=== PATIENT | male | born 1945 | race Caucasian/White ===

== ENCOUNTER 2017-04-26 10:22 | Emergency (ER) | payer MEDICARE, MEDICAID ==
[2017-04-26] MEDS ORDERED: methylPREDNISolone Sodium Succinate 125 MG/2 ML SDV IVPUSH ONE (11:23)
[2017-04-26] MEDS ORDERED: Albuterol/Ipratropium 3.0-0.5 MG/3 ML Neb Soln NEB ONE (11:23)
--- NOTE | 2017-04-26 11:27 | EDM.PDOC ---
ED HPI GENERAL MEDICAL PROBLEM - General Chief Complaint: Respiratory Problem Stated Complaint: from clinic Time Seen by Provider: 04/26/17 11:17 Source of Information: Reports: Patient, Family, Old Records, RN Notes Reviewed History Limitations: Reports: No Limitations - History of Present Illness INITIAL COMMENTS - FREE TEXT/NARRATIVE: 71-year-old gentleman presents emergency department today for further evaluation , he was sent over from the infusion center he is currently undergoing chemotherapy for lung cancer with metastases, he has a known history of COPD does admit to being more short of breath this morning than he usually is I did receive a neb treatment in the clinic help some. Recently had a dental infection was treated with antibiotics and steroids however the wheezing has continued. He's also noticed he's more hypoxic hanging around the 90s usually is around 94 for his baseline limits to creatinine creatinine currently. I did discuss his care with his cancer provider she is concerned about a pulmonary embolism because of his risk - Related Data Allergies Allergy/AdvReac Type Severity Reaction Status Date / Time barium sulfate Allergy Intermediate Hives Verified 04/26/17 10:57 ibuprofen Allergy Other Verified 04/26/17 10:57 Home Meds: Home Meds Albuterol Sulfate 3 ml INH Q4HR 04/26/17 [History] Albuterol Sulfate [Proair Hfa] 2 puff INH DAILY 04/26/17 [History] Furosemide [Lasix] 20 mg PO DAILY 04/26/17 [History] Levothyroxine Sodium [Synthroid] 125 mcg PO DAILY 04/26/17 [History] Past Medical History HEENT History: Reports: Hard of Hearing, Impaired Vision, Other (See Below) Other HEENT History: dentures Respiratory History: Reports: COPD Endocrine/Metabolic History: Reports: Hypothyroidism Oncologic (Cancer) History: Reports: Brain, Liver, Lung, Lymphoma Dermatologic History: Reports: Other (See Below) Other Dermatologic History: rash - Past Surgical History HEENT Surgical History: Reports: Tonsillectomy Respiratory Surgical History: Reports: Lung Biopsies Male Surgical History: Reports: Vasectomy Social & Family History - Tobacco Use Smoking Status *Q: Former Smoker Years of Tobacco use: 60 Used Tobacco, but Quit: Yes Month Tobacco Last Used: 60 - Caffeine Use Caffeine Use: Reports: Coffee, Soda - Recreational Drug Use Recreational Drug Use: Yes Recreational Drug Type: Reports: Marijuana/Hashish Recreational Drug Use Frequency: Monthly ED ROS GENERAL - Review of Systems Review Of Systems: See Below Constitutional: Reports: No Symptoms HEENT: Reports: No Symptoms Respiratory: Reports: Shortness of Breath, Wheezing, Cough. Denies: Sputum Cardiovascular: Reports: No Symptoms GI/Abdominal: Reports: No Symptoms : Reports: No Symptoms Musculoskeletal: Reports: No Symptoms Skin: Reports: No Symptoms Neurological: Reports: No Symptoms ED EXAM, GENERAL - Physical Exam Exam: See Below Exam Limited By: No Limitations General Appearance: Alert, WD/WN, No Apparent Distress Head: Atraumatic, Normocephalic Neck: Normal Inspection, Supple, Non-Tender, Full Range of Motion Respiratory/Chest: No Respiratory Distress, Rhonchi, Wheezing, Prolonged Expiration. No: Accessory Muscle Use, Retractions Cardiovascular: Regular Rate, Rhythm, No Murmur Extremities: Other (+2 pitting edema bilaterally) Course - Vital Signs Last Recorded V/S: Last Vital Signs Temp 97.2 F 04/26/17 10:56 Pulse 110 H 04/26/17 10:56 Resp 18 04/26/17 10:56 BP 122/80 04/26/17 10:56 Pulse Ox 90 L 04/26/17 10:56 - Orders/Labs/Meds Orders: Active Orders 24 hr Category Date Time Status Peripheral IV Care [RC] . DIRECTED Care 04/26/17 11:23 Active RT Aerosol Therapy [RC] ASDIRECTED Care 04/26/17 11:23 Active PRO B-TYPE NATRIUR PEPT,BNPPRO [CHEM] Urgent Lab 04/26/17 11:47 Ordered Iopamidol [Isovue-370 (76%)] Med 04/26/17 11:30 Active 100 ml IV . DIRECTED Sodium Chloride 0.9% [Normal Saline] 1,000 ml Med 04/26/17 11:30 Active IV ASDIRECTED Sodium Chloride 0.9% [Normal Saline] 100 ml Med 04/26/17 11:30 Active IV ASDIRECTED Sodium Chloride 0.9% [Saline Flush] Med 04/26/17 11:23 Active 10 ml FLUSH ASDIRECTED PRN Peripheral IV Insertion Adult [OM.PC] Urgent Oth 04/26/17 11:23 Ordered Medication Orders Sodium Chloride (Normal Saline) 1,000 mls @ 500 mls/hr IV ASDIRECTED JOE Last Admin: 04/26/17 11:35 Dose: 500 mls/hr Sodium Chloride (Normal Saline) 100 mls @ 4 mls/sec IV ASDIRECTED JOE Last Admin: 04/26/17 11:45 Dose: 4 mls/sec Iopamidol (Isovue-370 (76%)) 100 ml IV . DIRECTED JOE Last Admin: 04/26/17 11:44 Dose: 100 ml Sodium Chloride (Saline Flush) 10 ml FLUSH ASDIRECTED PRN PRN Reason: Keep Vein Open Last Admin: 04/26/17 11:44 Dose: 10 ml Admin: 04/26/17 11:34 Dose: 10 ml Meds: Medications Generic Name Dose Route Start Last Admin Trade Name Freq PRN Reason Stop Dose Admin Sodium Chloride 1,000 mls @ 500 mls/hr 04/26/17 11:30 04/26/17 11:35 Normal Saline IV 500 mls/hr ASDIRECTED JOE Administration Sodium Chloride 100 mls @ 4 mls/sec 04/26/17 11:30 04/26/17 11:45 Normal Saline IV 4 mls/sec ASDIRECTED JOE Administration Iopamidol 100 ml 04/26/17 11:30 04/26/17 11:44 Isovue-370 (76%) IV 100 ml . DIRECTED JOE Administration Sodium Chloride 10 ml 04/26/17 11:23 04/26/17 11:44 Saline Flush FLUSH 10 ml ASDIRECTED PRN Administration Keep Vein Open Discontinued Medications Generic Name Dose Route Start Last Admin Trade Name Freq PRN Reason Stop Dose Admin Albuterol/Ipratropium 3 ml 04/26/17 11:23 04/26/17 11:34 Duoneb 3.0-0.5 Mg/3 Ml NEB 04/26/17 11:24 3 ml ONETIME ONE Administration Methylprednisolone Sodium Succinate 125 mg 04/26/17 11:23 04/26/17 11:34 Solu-Medrol IVPUSH 04/26/17 11:24 125 mg ONETIME ONE Administration Departure - Departure Time of Disposition: 12:15 Disposition: Home, Self-Care 01 Condition: Poor Clinical Impression: Acute bronchitis with COPD - Discharge Information Referrals: Gregory Ta PA [Primary Care Provider] - Forms: ED Department Discharge Additional Instructions: Take full course of antibiotics, use the Lasix, water pill for the next 3 days then return to her normal dose, take 7 day course of prednisone starting tomorrow, follow-up with your primary care in 5-7 days for reevaluation - My Orders Last 24 Hours: My Active Orders 04/26/17 11:23 Peripheral IV Care [RC] . DIRECTED RT Aerosol Therapy [RC] ASDIRECTED Sodium Chloride 0.9% [Saline Flush] 10 ml FLUSH ASDIRECTED PRN Peripheral IV Insertion Adult [OM.PC] Urgent 04/26/17 11:30 Iopamidol [Isovue-370 (76%)] 100 ml IV . DIRECTED Sodium Chloride 0.9% [Normal Saline] 1,000 ml IV ASDIRECTED Sodium Chloride 0.9% [Normal Saline] 100 ml IV ASDIRECTED 04/26/17 11:47 PRO B-TYPE NATRIUR PEPT,BNPPRO [CHEM] Urgent - Assessment/Plan Last 24 Hours: My Active Orders 04/26/17 11:23 Peripheral IV Care [RC] . DIRECTED RT Aerosol Therapy [RC] ASDIRECTED Sodium Chloride 0.9% [Saline Flush] 10 ml FLUSH ASDIRECTED PRN Peripheral IV Insertion Adult [OM.PC] Urgent 04/26/17 11:30 Iopamidol [Isovue-370 (76%)] 100 ml IV . DIRECTED Sodium Chloride 0.9% [Normal Saline] 1,000 ml IV ASDIRECTED Sodium Chloride 0.9% [Normal Saline] 100 ml IV ASDIRECTED 04/26/17 11:47 PRO B-TYPE NATRIUR PEPT,BNPPRO [CHEM] Urgent Plan: Assessment Acuity = acute Site and laterality = acute bronchitis complicated patient with known history of chronic obstructive pulmonary disease and lung cancer with metastases Etiology = unclear etiology Manifestations = wheezing, dyspnea Location of injury = Home Lab values = CT scan of the chest angiogram reveals no pulmonary embolism however thickened bronchioles consistent with the otitis type picture metastases of the liver appears stable, BNP was pending Plan I did review CT scan results with him, plan is to do doxycycline 100 mg by mouth twice a day 7 days, he received 125 mg Solu-Medrol here will continue prednisone 40 mg once day for 7 days, he currently is on 20 mg of Lasix which was recently increased to 40 by his primary care provider increase that to 40 mg by mouth twice a day for the next 3 days have him follow-up with his primary care in 5-7 days for evaluation This note was dictated using [email or web address] voice recognition software please call with any questions on syntax or veena.
[2017-04-26] MEDS ORDERED: Iopamidol 755 Mg/ML 100 ML Bottle IV SCH (11:30)
[2017-04-26] MEDS ORDERED: Sodium Chloride 0.9% 1,000 ML IV SCH (11:30)
[2017-04-26] MEDS ORDERED: Sodium Chloride 0.9% 100 ML IV SCH (11:30)
[2017-04-26] MEDS: Sodium Chloride 0.9% 10 ML Syringe FLUSH PRN ×2 (11:34→11:44)
--- NOTE | 2017-04-26 12:09 | CT ---
Ang Chest HISTORY: sob, lung CA TECHNIQUE: Spiral enhanced pulmonary CT angiography of the chest was obtained along with coronal and 3-D sagittal reconstructions. COMPARISON: CT chest, 03/24/2017, 01/19/2017 FINDINGS: There is good enhancement of the pulmonary arteries bilaterally. I see no abnormal intraluminal filli ng defect, vascular cutoff, or nonenhancement. No pulmonary embolism is identified. Thoracic aorta is normal in caliber. I see no evidence for thoracic aortic aneurysm or dissection. Heart size is withi n normal limits. There is increased mild peribronchial thickening right hilar region extending into the right lower lo be. Narrowing of the central right middle and lower lobe bronchi is seen. These changes were not pres ent on the prior study could be inflammatory. A couple of borderline prominent right hilar lymph node s are stable. Slight soft tissue prominence right superior hilar region is stable. Again seen are bullous changes about the right hilum. No focal pulmonary parenchymal infiltrate or co nsolidation is seen. I see no pleural fluid. Upper abdominal structures are stable. There are multipl e areas of low attenuation in the liver similar to prior exam. The largest lesion is again noted in t he posterior right lobe of the liver. Posterior costophrenic angles are not included on this exam. Di ffuse degenerative and hypertrophic changes are again noted along the thoracic spine. I see no lytic or blastic bony lesion. IMPRESSION: 1. Negative for pulmonary embolism. No evidence for aortic aneurysm or dissection. 2. Mild soft tissue fullness right superior hilar region is stable. 3. There appear to be new mild peribronchial inflammatory changes right middle and lower lobes. Recom mend clinical correlation. 4. Probable metastatic disease to the liver is redemonstrated. Total DLP 418 mGycm Report was called to Officer in the Emergency Department at 1200 hours.
[2017-04-26 12:28] VITALS: BP 122/80
== END 2017-04-26 12:28 | disposition home or self-care (01) ==
LOC: JP.ED 10:22
DX: J20.9 Acute bronchitis, unspecified (principal); J44.0 Chronic obstructive pulmonary disease with (acute) lower respiratory infection; E03.9 Hypothyroidism, unspecified; C34.90 Malignant neoplasm of unspecified part of unspecified bronchus or lung; C78.7 Secondary malignant neoplasm of liver and intrahepatic bile duct; C79.31 Secondary malignant neoplasm of brain; Z88.8 Allergy status to other drugs, medicaments and biological substances; Z79.899 Other long term (current) drug therapy; Z87.891 Personal history of nicotine dependence
CPT/HCPCS: 36415; 71275; 83880; 94640; 96361; 96374; 99284; J2930; J7030; J7040; J7050; J7620; Q9967

== ENCOUNTER 2017-06-03 21:38 | Emergency (ER) | payer MEDICARE, MEDICAID ==
[2017-06-03] MEDS ORDERED: Sodium Chloride 0.9% 10 ML Syringe FLUSH PRN (22:08)
[2017-06-03] MEDS ORDERED: Albuterol/Ipratropium 3.0-0.5 MG/3 ML Neb Soln NEB ONE ×2 (22:08→23:02)
[2017-06-03] MEDS ORDERED: methylPREDNISolone Sodium Succinate 40 MG/1 ML SDV IVPUSH ONE (22:09)
--- NOTE | 2017-06-03 22:16 | EDM.PDOC ---
ED HPI GENERAL MEDICAL PROBLEM - General Chief Complaint: Respiratory Problem Stated Complaint: SHORTNESS OF BREATH Time Seen by Provider: 06/03/17 22:00 Source of Information: Reports: Patient, Family, Old Records History Limitations: Reports: No Limitations - History of Present Illness INITIAL COMMENTS - FREE TEXT/NARRATIVE: 72 yo male presents with SOB and wheezing that started about a week ago, but which is much worse today. No fever. Had an albuterol neb about an hour ago. Was recently on steroids, but is not currently. Has known COPD as well as lung involvement with cancer. Onset: Gradual Onset Date: 05/28/17 Duration: Day(s):, Getting Worse Location: Reports: Chest Quality: Reports: Other (no pain) Severity: Moderate Improves with: Reports: Rest Worsens with: Reports: Movement (exertion) Context: Reports: Other (Hx of COPD) Associated Symptoms: Reports: Cough, Shortness of Breath. 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: Reports: Breathing Treatments, Other (see below) (Albuterol neb) denies pain Pain Score (Numeric/FACES): 0 - Related Data Allergies Allergy/AdvReac Type Severity Reaction Status Date / Time barium sulfate Allergy Intermediate Hives Verified 04/26/17 10:57 ibuprofen Allergy Itching Verified 06/03/17 21:46 Home Meds: Home Meds Albuterol Sulfate 3 ml INH Q4HR 04/26/17 [History] Albuterol Sulfate [Proair Hfa] 2 puff INH DAILY 04/26/17 [History] Furosemide [Lasix] 20 mg PO DAILY 04/26/17 [History] Levothyroxine Sodium [Synthroid] 137 mcg PO DAILY 04/26/17 [History] Acetaminophen [Tylenol] 650 mg PO ASDIRECTED PRN 06/03/17 [History] Furosemide [Lasix] 40 mg PO BID PRN 06/03/17 [History] Ipratropium [Atrovent] 0.5 mg INH Q6H PRN #30 neb 06/03/17 [Rx] predniSONE [Prednisone] 20 mg PO BID #10 tablet 06/03/17 [Rx] Past Medical History HEENT History: Reports: Hard of Hearing, Impaired Vision, Other (See Below) Other HEENT History: dentures. bilateral hearing aids Respiratory History: Reports: COPD Gastrointestinal History: Reports: Hemorrhoids Endocrine/Metabolic History: Reports: Hypothyroidism Oncologic (Cancer) History: Reports: Brain, Liver, Lung, Lymphoma Dermatologic History: Reports: Other (See Below) Other Dermatologic History: rash - Infectious Disease History Infectious Disease History: Reports: Chicken Pox, Measles, Mumps, Shingles - Past Surgical History HEENT Surgical History: Reports: Tonsillectomy Respiratory Surgical History: Reports: Lung Biopsies GI Surgical History: Reports: Other (See Below) Other GI Surgeries/Procedures: hemorrhoidectomy Male Surgical History: Reports: Vasectomy Social & Family History - Tobacco Use Smoking Status *Q: Current Every Day Smoker Years of Tobacco use: 50 Packs/Tins Daily: 0.2 Used Tobacco, but Quit: Yes Month/Year Tobacco Last Used: 60 - Caffeine Use Caffeine Use: Reports: Coffee, Soda - Recreational Drug Use Recreational Drug Use: No Recreational Drug Type: Reports: Marijuana/Hashish Recreational Drug Use Frequency: Monthly ED ROS GENERAL - Review of Systems Review Of Systems: See Below Constitutional: Reports: No Symptoms HEENT: Reports: No Symptoms Respiratory: Reports: Shortness of Breath, Wheezing, Cough. Denies: Pleuritic Chest Pain, Sputum, Hemoptysis Cardiovascular: Reports: No Symptoms Endocrine: Reports: No Symptoms GI/Abdominal: Reports: No Symptoms : Reports: No Symptoms Musculoskeletal: Reports: No Symptoms Skin: Reports: No Symptoms Neurological: Reports: No Symptoms Psychiatric: Reports: No Symptoms ED EXAM, GENERAL - Physical Exam Exam: See Below Exam Limited By: No Limitations General Appearance: Alert, WD/WN, Mild Distress Eye Exam: Bilateral Eye: Normal Inspection Ears: Normal External Exam, Normal Canal, Hearing Grossly Normal, Other ( Bilateral hearing aids) Ear Exam: Bilateral Ear: Auricle Normal, Canal Normal Nose: Normal Inspection, Normal Mucosa, No Blood Throat/Mouth: Normal Inspection, Normal Lips, Normal Oropharynx, Normal Voice, No Airway Compromise Head: Atraumatic, Normocephalic Neck: Normal Inspection, Supple, Non-Tender Respiratory/Chest: Decreased Breath Sounds, Wheezing, Prolonged Expiration Cardiovascular: Regular Rate, Rhythm GI/Abdominal: Normal Bowel Sounds, Soft, Non-Tender Back Exam: Normal Inspection. No: CVA Tenderness (R), CVA Tenderness (L) Extremities: Normal Inspection, Normal Range of Motion, Non-Tender Neurological: Alert, Oriented, CN II-XII Intact, Normal Cognition, No Motor/ Sensory Deficits Psychiatric: Normal Affect, Normal Mood Skin Exam: Warm, Dry, Intact, Normal Color, No Rash Lymphatic: No Adenopathy Course - Vital Signs Text/Narrative:: Moderate improvement in the ER with IV steroids and Duoneb, does not want to stay in the hospital. Last Recorded V/S: Last Vital Signs Temp 37.0 C 06/03/17 22:06 Pulse 102 H 06/03/17 22:54 Resp 20 06/03/17 22:35 BP 102/64 06/03/17 22:54 Pulse Ox 95 06/03/17 22:54 - Orders/Labs/Meds Orders: Active Orders 24 hr Category Date Time Status Cardiac Monitoring [RC] .As Directed Care 06/03/17 22:10 Active Oxygen Therapy Adult [Oxygen Therapy, ED] [RC] Care 06/03/17 22:08 Active ASDIRECTED RT Aerosol Therapy [RC] ASDIRECTED Care 06/03/17 22:08 Active Chest 2V [CR] Stat Exams 06/03/17 22:10 Taken Sodium Chloride 0.9% [Saline Flush] Med 06/03/17 22:08 Active 10 ml FLUSH ASDIRECTED PRN Saline Lock Insert [OM.PC] Routine Oth 06/03/17 22:08 Ordered Medication Orders Sodium Chloride (Saline Flush) 10 ml FLUSH ASDIRECTED PRN PRN Reason: Keep Vein Open Last Admin: 06/03/17 22:45 Dose: 10 ml Labs: Laboratory Tests 06/03/17 06/03/17 Range/Units 22:20 22:20 WBC 10.3 (4.5-11.0) K/uL RBC 5.96 H (4.30-5.90) M/uL Hgb 16.5 H (12.0-15.0) g/dL Hct 49.8 (40.0-54.0) % MCV 84 (80-98) fL MCH 28 (27-31) pg MCHC 33 (32-36) % Plt Count 232 (150-400) K/uL Sodium 143 (140-148) mmol/L Potassium 4.9 (3.6-5.2) mmol/L Chloride 107 (100-108) mmol/L Carbon Dioxide 31 (21-32) mmol/L Anion Gap 5.4 (5.0-14.0) mmol/L BUN 12 (7-18) mg/dL Creatinine 1.1 (0.8-1.3) mg/dL Est Cr Clr Drug Dosing 53.17 mL/min Estimated GFR (MDRD) > 60 (>60) Glucose 125 H (74-106) mg/dL Calcium 8.8 (8.5-10.1) mg/dL Meds: Medications Generic Name Dose Route Start Last Admin Trade Name Freq PRN Reason Stop Dose Admin Sodium Chloride 10 ml 06/03/17 22:08 06/03/17 22:45 Saline Flush FLUSH 10 ml ASDIRECTED PRN Administration Keep Vein Open Discontinued Medications Generic Name Dose Route Start Last Admin Trade Name Freq PRN Reason Stop Dose Admin Albuterol/Ipratropium 3 ml 06/03/17 22:08 06/03/17 22:44 Duoneb 3.0-0.5 Mg/3 Ml NEB 06/03/17 22:09 3 ml ONETIME ONE Administration Methylprednisolone Sodium Succinate 40 mg 06/03/17 22:09 06/03/17 22:44 Solu-Medrol IVPUSH 06/03/17 22:10 40 mg ONETIME ONE Administration - Radiology Interpretation Free Text/Narrative:: CXR-emphysema, no acute changes. Departure - Departure Time of Disposition: 23:01 Disposition: Home, Self-Care 01 Condition: Fair Clinical Impression: COPD with exacerbation - Discharge Information Prescriptions: Ipratropium [Atrovent] 0.5 mg INH Q6H PRN #30 neb PRN Reason: Wheezing predniSONE [Prednisone] 20 mg PO BID #10 tablet Referrals: Gregory Ta PA [Primary Care Provider] - Forms: ED Department Discharge Additional Instructions: Add prednisone every 12 hrs with food to your current meds. Use ipratroprium nebs every 6 hrs for wheezing not controlled by albuterol alone. Return as needed. See your doctor next week for recheck. Use oxygen as needed at home. - My Orders Last 24 Hours: My Active Orders 06/03/17 22:08 Oxygen Therapy Adult [Oxygen Therapy, ED] [RC] ASDIRECTED RT Aerosol Therapy [RC] ASDIRECTED Sodium Chloride 0.9% [Saline Flush] 10 ml FLUSH ASDIRECTED PRN Saline Lock Insert [OM.PC] Routine 06/03/17 22:10 Cardiac Monitoring [RC] .As Directed Chest 2V [CR] Stat - Assessment/Plan Last 24 Hours: My Active Orders 06/03/17 22:08 Oxygen Therapy Adult [Oxygen Therapy, ED] [RC] ASDIRECTED RT Aerosol Therapy [RC] ASDIRECTED Sodium Chloride 0.9% [Saline Flush] 10 ml FLUSH ASDIRECTED PRN Saline Lock Insert [OM.PC] Routine 06/03/17 22:10 Cardiac Monitoring [RC] .As Directed Chest 2V [CR] Stat
[2017-06-03 22:55] VITALS: BP 102/64
--- NOTE | 2017-06-05 09:32 | CR ---
Heart size within normal limits. Emphysematous change. No focal consolidation. 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
== END 2017-06-03 23:21 | disposition home or self-care (01) ==
LOC: JP.ED 21:38
DX: J44.1 Chronic obstructive pulmonary disease with (acute) exacerbation (principal); E03.9 Hypothyroidism, unspecified; F17.210 Nicotine dependence, cigarettes, uncomplicated; Z88.6 Allergy status to analgesic agent; Z79.899 Other long term (current) drug therapy; Z88.8 Allergy status to other drugs, medicaments and biological substances
CPT/HCPCS: 36415; 71046; 80048; 85027; 94640; 96374; 99284; 99285; J2920; J7050; J7620

== ENCOUNTER 2018-06-21 08:15 | Day surgery (SDC) | payer MEDICARE, MEDICAID ==
[2018-06-21] MEDS ORDERED: Sodium Chloride 0.9% 10 ML Syringe FLUSH PRN (09:00)
[2018-06-21 10:27] VITALS: BP 108/77
--- NOTE | 2018-06-21 13:19 | OR ---
DATE OF PROCEDURE: 06/21/2018 POSTOPERATIVE CARE: Postoperative care will be provided mainly at the [address] [place] [address] [facility] in conjunction with [facility]. PREOPERATIVE DIAGNOSIS: Cataract, left eye. POSTOPERATIVE DIAGNOSIS: Cataract, left eye. PROCEDURE: Phacoemulsification with intraocular lens placement, left eye. ANESTHESIA: Topical and intracameral. ESTIMATED BLOOD LOSS: Minimal. COMPLICATIONS: None. PATHOLOGY SPECIMENS: None. SURGICAL FINDINGS: None. INDICATION FOR PROCEDURE: The patient is a 73-year-old male with history of a visually significant cataract in the left eye, which interfered with activities of daily living. This consisted of a nuclear sclerosis cataract. Following careful discussion of the risks, benefits and alternatives to cataract extraction with intraocular lens placement including blindness and , the patient elected to proceed, and informed, written consent was obtained prior to the procedure. DESCRIPTION OF THE PROCEDURE: The patient was previously identified, and a imtiaz placed above the left eye. All sources, including the patient, indicated that the left eye was the correct eye. The patient was subsequently taken to the operating room where standard monitors were applied. The patient was then prepped and draped in the usual sterile fashion for ophthalmic surgery. Attention was first directed at the 12 o'clock position where a paracentesis port was fashioned. Shugar solution followed by Viscoat was instilled into the eye. Attention was then directed to the 8:30 position where a triplanar incision was made in a near-clear manner using a keratome. A continuous capsulorrhexis was then made using a combination of the cystotome and Utrata forceps. Hydrodissection was achieved using a balanced salt solution, and the lens rotated nicely. Phacoemulsification was then done using a modified [id number] technique without complication. Phaco time was 5.49 CDE. The remaining cortex was removed using the irrigation/aspiration handpiece. Provisc was then instilled into the eye. A Technis lens, model [id number], at 21.0 Diopters was then placed in the capsular bag using an [place] injector. The remaining viscoelastic was removed using the irrigation/aspiration forceps. All wounds were then checked and found to be watertight. The lid speculum and drapes were removed. Maxitrol ointment was placed in the patient's left eye, and the eye was shielded. The patient tolerated the procedure well. The patient was instructed to follow up tomorrow. All needle and sponge counts were correct at the end of the procedure. There were no surgical findings. Mariel Lo MD /[id number]
== END 2018-06-21 10:10 | disposition home or self-care (01) ==
LOC: JP.SDS 08:15
PROVIDERS: ATTEND Ophthalmology
DX: H26.9 Unspecified cataract (principal)
CPT/HCPCS: 66984; V2632

== ENCOUNTER 2018-07-05 06:52 | Day surgery (SDC) | payer MEDICARE, MEDICAID ==
[2018-07-05] MEDS ORDERED: Sodium Chloride 0.9% 10 ML Syringe FLUSH PRN (07:30)
[2018-07-05 08:33] VITALS: BP 114/56
--- NOTE | 2018-07-05 14:40 | OR ---
DATE OF PROCEDURE: 07/05/2018 POSTOPERATIVE CARE: Postoperative care will be provided mainly at the [address] [place] [address] [facility] in conjunction with [facility]. PREOPERATIVE DIAGNOSIS: Cataract, right eye. POSTOPERATIVE DIAGNOSIS: Cataract, right eye. PROCEDURE: Phacoemulsification with intraocular lens placement, right eye. ANESTHESIA: Topical and intracameral. ESTIMATED BLOOD LOSS: Minimal. COMPLICATIONS: None. PATHOLOGY SPECIMENS: None. SURGICAL FINDINGS: None. INDICATION FOR PROCEDURE: The patient is a 73-year-old male with history of a visually significant cataract in the right eye, which interfered with activities of daily living. This consisted of a nuclear sclerosis cataract. Following careful discussion of the risks, benefits and alternatives to cataract extraction with intraocular lens placement including blindness and , the patient elected to proceed, and informed, written consent was obtained prior to the procedure. DESCRIPTION OF THE PROCEDURE: The patient was previously identified, and a imtiaz placed above the right eye. All sources, including the patient, indicated that the right eye was the correct eye. The patient was subsequently taken to the operating room where standard monitors were applied. The patient was then prepped and draped in the usual sterile fashion for ophthalmic surgery. Attention was first directed at the 12 o'clock position where a paracentesis port was fashioned. Shugar solution followed by Viscoat was instilled into the eye. Attention was then directed to the 8:30 position where a triplanar incision was made in a near-clear manner using a keratome. A continuous capsulorrhexis was then made using a combination of the cystotome and Utrata forceps. Hydrodissection was achieved using a balanced salt solution, and the lens rotated nicely. Phacoemulsification was then done using a modified [id number] technique without complication. Phaco time was 6.25 CDE. The remaining cortex was removed using the irrigation/aspiration handpiece. Provisc was then instilled into the eye. A Technis lens, model [id number], at 21.5 diopters was then placed in the capsular bag using an Hoople injector. The remaining viscoelastic was removed using the irrigation/aspiration forceps. All wounds were then checked and found to be watertight. The lid speculum and drapes were removed. Maxitrol ointment was placed in the patient's right eye, and the eye was shielded. The patient tolerated the procedure well. The patient was instructed to follow up tomorrow. All needle and sponge counts were correct at the end of the procedure. There were no surgical findings. Mariel Lo MD /[id number]
== END 2018-07-05 08:44 | disposition home or self-care (01) ==
LOC: JP.SDS 06:52
PROVIDERS: ATTEND Ophthalmology
DX: H25.11 Age-related nuclear cataract, right eye (principal); J44.9 Chronic obstructive pulmonary disease, unspecified; C34.90 Malignant neoplasm of unspecified part of unspecified bronchus or lung; F17.200 Nicotine dependence, unspecified, uncomplicated
CPT/HCPCS: 66984; V2632

== ENCOUNTER 2019-03-08 06:40 | Emergency (ER) | payer MEDICARE, MEDICAID ==
[2019-03-08] MEDS ORDERED: Nitroglycerin 0.4 MG Tab.SL ONE (06:47)
[2019-03-08] MEDS ORDERED: Nitroglycerin 0.4 MG Tab.SL SL ONE (06:48)
--- NOTE | 2019-03-08 07:48 | CRLCR ---
INDICATION: Chest pain TECHNIQUE: Chest 1 views COMPARISON: CT chest February 05, 2019 FINDINGS: Cardiovascular and mediastinum: Heart size and vasculature are normal in caliber and appearance. Lungs and pleural spaces: Ill-defined 2.8 cm mass lesion is in the lateral left mid lung. The remainder of the lungs and pleural spaces are clear. No pneumothorax. No other finding to explain chest pain. Bones and soft tissues: No significant findings. Dictated by Oj Real MD @ 03/08/2019 7:47:05 AM Dictated by: Oj Real MD @ 03/08/2019 07:47:10 (Electronically Signed)
[2019-03-08] MEDS ORDERED: Sodium Chloride 0.9% 10 ML Syringe FLUSH PRN (07:50)
[2019-03-08] MEDS ORDERED: Sodium Chloride 0.9% 80 ML IV ONE (07:50)
--- NOTE | 2019-03-08 07:52 | EDM.PDOC ---
ED HPI GENERAL MEDICAL PROBLEM - General Chief Complaint: Chest Pain Stated Complaint: CHEST PAINS Time Seen by Provider: 03/08/19 07:15 Source of Information: Reports: Patient History Limitations: Reports: No Limitations - History of Present Illness INITIAL COMMENTS - FREE TEXT/NARRATIVE: 73 -year-old with history of metastatic lung cancer presents to concerns of chest pain. The pain is primarily in the left side of his chest. It started suddenly at 3 AM. It is strongly pleuritic in nature. He has no associated dyspnea. It is nonexertional. No new cough. No hemoptysis. No fevers or chills. No history of similar pain in the past. No history of heart disease. Denies any bloody stools or melena. He is currently undergoing chemotherapy for his lung cancer, with plans to start radiation therapy in [place] next week for new lung lesions. He has no lower extremity swelling or pain. No history of DVT. No recent surgeries or immobilizations. Chest Pain Score (Numeric/FACES): 1 - Related Data Allergies Allergy/AdvReac Type Severity Reaction Status Date / Time barium sulfate Allergy Intermediate Hives Verified 03/08/19 06:52 aspirin Allergy Other Verified 03/08/19 06:52 [From Excedrin Extra Strength] caffeine Allergy Other Verified 03/08/19 06:52 [From Excedrin Extra Strength] ibuprofen Allergy Itching Verified 03/08/19 06:52 Home Meds: Home Meds Furosemide [Lasix] 20 mg PO ASDIRECTED 04/26/17 [History] Levothyroxine Sodium [Synthroid] 175 mcg PO DAILY 04/26/17 [History] Ipratropium [Atrovent] 0.5 mg INH Q6H PRN #30 neb 06/03/17 [Rx] Albuterol Sulfate [Proair Hfa] 2 puff INH QID PRN 06/19/18 [History] Dexamethasone Sodium Phosphate [Dexonto] 1 drop EYELF QID 06/19/18 [History] Fluticasone/Salmeterol [Advair 250-50 Diskus] 1 puff INH BID 06/19/18 [History] Moxifloxacin HCl [Moxifloxacin] 1 drop EYELF QID 06/19/18 [History] Triamcinolone Acetonide [Triamcinolone Acetonide 0.1% Oint] 1 applic TOP DAILY 06/19/18 [History] guaiFENesin [Guaifenesin ER] 1,200 mg PO BID 06/19/18 [History] Albuterol/Ipratropium [DuoNeb 3.0-0.5 MG/3 ML] 1 inh INH Q4H PRN 07/03/18 [ History] Clobetasol [Clobetasol Propionate 0.05%] 15 gm TOP BID 07/03/18 [History] Amoxicillin/Clavulanate K [Augmentin 875-125 MG] 1 tab PO BID 7 Days #14 tablet 03/08/19 [Rx] Azithromycin [Zithromax] 250 mg PO DAILY #6 tab 03/08/19 [Rx] Past Medical History HEENT History: Reports: Cataract, Hard of Hearing, Impaired Vision, Other (See Below) Other HEENT History: dentures. bilateral hearing aids Respiratory History: Reports: COPD Gastrointestinal History: Reports: Hemorrhoids Musculoskeletal History: Reports: Back Pain, Chronic Endocrine/Metabolic History: Reports: Hypothyroidism Oncologic (Cancer) History: Reports: Brain, Liver, Lung, Lymphoma Dermatologic History: Reports: Other (See Below) Other Dermatologic History: rash - Infectious Disease History Infectious Disease History: Reports: Chicken Pox, Measles, Mumps - Past Surgical History HEENT Surgical History: Reports: Cataract Surgery, Tonsillectomy Respiratory Surgical History: Reports: Lung Biopsies GI Surgical History: Reports: Other (See Below) Other GI Surgeries/Procedures: hemorrhoidectomy Male Surgical History: Reports: Vasectomy Musculoskeletal Surgical History: Reports: None Social & Family History - Family History Family Medical History: Noncontributory - Tobacco Use Years of Tobacco use: 60 Packs/Tins Daily: 1 - Caffeine Use Caffeine Use: Reports: Coffee, Soda - Recreational Drug Use Recreational Drug Use: No ED ROS GENERAL - Review of Systems Review Of Systems: See Below Constitutional: Reports: No Symptoms HEENT: Reports: No Symptoms Respiratory: Reports: Pleuritic Chest Pain Cardiovascular: Reports: Chest Pain Endocrine: Reports: No Symptoms GI/Abdominal: Reports: No Symptoms : Reports: No Symptoms Musculoskeletal: Reports: No Symptoms Skin: Reports: No Symptoms Neurological: Reports: No Symptoms Psychiatric: Reports: No Symptoms Hematologic/Lymphatic: Reports: No Symptoms Immunologic: Reports: No Symptoms ED EXAM, GENERAL - Physical Exam Exam: See Below Exam Limited By: No Limitations General Appearance: Alert, No Apparent Distress Ears: Normal External Exam Nose: Normal Inspection Throat/Mouth: Normal Inspection Head: Atraumatic, Normocephalic Respiratory/Chest: No Respiratory Distress, Crackles Cardiovascular: Regular Rate, Rhythm, No Edema GI/Abdominal: Soft, Non-Tender Back Exam: Normal Inspection Extremities: Normal Inspection Neurological: Alert, Oriented Psychiatric: Normal Affect, Normal Mood Skin Exam: Warm, Dry Course - Vital Signs Last Recorded V/S: Last Vital Signs Temp 36.9 C 03/08/19 06:44 Pulse 83 03/08/19 08:49 Resp 25 H 03/08/19 08:49 BP 90/52 L 03/08/19 08:49 Pulse Ox 93 L 03/08/19 08:49 - Orders/Labs/Meds Orders: Active Orders 24 hr Category Date Time Status EKG Documentation Completion [RC] ASDIRECTED Care 03/08/19 07:02 Active Iopamidol [Isovue-370 (76%)] Med 03/08/19 08:00 Active 80 ml IV . DIRECTED Sodium Chloride 0.9% [Saline Flush] Med 03/08/19 07:50 Active 10 ml FLUSH ONETIME PRN EKG 12 Lead [EK] Routine Ther 03/08/19 07:01 Ordered Medication Orders Iopamidol (Isovue-370 (76%)) 80 ml IV . DIRECTED [facility] Last Admin: 03/08/19 08:19 Dose: 80 ml Sodium Chloride (Saline Flush) 10 ml FLUSH ONETIME PRN PRN Reason: PER RADIOLOGY PROTOCOL Last Admin: 03/08/19 08:19 Dose: 10 ml Labs: Laboratory Tests 03/08/19 03/08/19 Range/Units 06:50 06:50 WBC 12.1 H (4.5-11.0) K/uL RBC 5.14 (4.30-5.90) M/uL Hgb 14.1 D (12.0-15.0) g/dL Hct 43.4 (40.0-54.0) % MCV 84 (80-98) fL MCH 27 (27-31) pg MCHC 33 (32-36) % Plt Count 209 (150-400) K/uL Neut % (Auto) 73 H (36-66) % Lymph % (Auto) 9 L (24-44) % [place] % (Auto) 13 H (2-6) % Eos % (Auto) 5 H (2-4) % Baso % (Auto) 0 (0-1) % Sodium 137 L (140-148) mmol/L Potassium 4.7 (3.6-5.2) mmol/L Chloride 104 (100-108) mmol/L Carbon Dioxide 22 (21-32) mmol/L Anion Gap 15.7 H (5.0-14.0) mmol/L BUN 16 (7-18) mg/dL Creatinine 1.2 (0.8-1.3) mg/dL Est Cr Clr Drug Dosing 49.73 mL/min Estimated GFR (MDRD) 59 L (>60) Glucose 111 H (74-106) mg/dL Calcium 8.1 L (8.5-10.1) mg/dL Total Bilirubin 0.8 (0.2-1.0) mg/dL AST 28 (15-37) U/L ALT 40 (12-78) U/L Alkaline Phosphatase 136 H (46-116) U/L Troponin I < 0.017 (0.000-0.056) ng/mL Total Protein 7.4 (6.4-8.2) g/dL Albumin 3.3 L (3.4-5.0) g/dL Globulin 4.1 H (2.3-3.5) g/dL Albumin/Globulin Ratio 0.8 L (1.2-2.2) Meds: Medications Generic Name Dose Route Start Last Admin Trade Name Freq PRN Reason Stop Dose Admin Iopamidol 80 ml 03/08/19 08:00 03/08/19 08:19 Isovue-370 (76%) IV 80 ml . DIRECTED JOE Administration Sodium Chloride 10 ml 03/08/19 07:50 03/08/19 08:19 Saline Flush FLUSH 10 ml ONETIME PRN Administration PER RADIOLOGY PROTOCOL Discontinued Medications Generic Name Dose Route Start Last Admin Trade Name Freq PRN Reason Stop Dose Admin Sodium Chloride 80 mls @ 3 mls/sec 03/08/19 07:50 03/08/19 08:20 Normal Saline IV 03/08/19 07:51 3 mls/sec ONETIME ONE Administration Nitroglycerin 0.4 mg 03/08/19 06:48 03/08/19 06:49 Nitrostat SL 03/08/19 06:49 0.4 mg ONETIME ONE Administration Nitroglycerin Confirm 03/08/19 06:47 Nitrostat Administered 03/08/19 06:48 Dose 0.4 mg .ROUTE .STK-MED ONE - Re-Assessments/Exams Free Text/Narrative Re-Assessment/Exam: 73-year-old with history of lung cancer presents with pleuritic left-sided chest pain. On exam he is found to be tachycardic. O2 sats in the low 90s, may just be his baseline. Mildly hypotensive after administration of nitroglycerin upon arrival to ED. No abdominal tenderness and exams otherwise benign. EKG is nonischemic. This does not sound like ACS. initial labs including troponin are remarkable only for mild elevation of his alkaline phosphatase, I suspect this is due to his malignancy as he has no abdominal tenderness. Chest x-ray on my read shows known left lower lobe malignancy, no acute process. Given his tachycardia, strong pleuritic nature of the pain combined with his history of malignancy place him at high pretest probability for PE, therefore will obtain CTA of the chest. 03/08/19 07:49 Free Text/Narrative Re-Assessment/Exam: CT without PE, does shows new VICKY infiltrate suspicious for infection. VICKY nodule has actually decreased in size Will treat for CAP with augmentin + zithromax Has follow-up with oncologist early next week for recheck prior to initiation of radiation therapy. Discussed returning to the ER for worsening. 03/08/19 09:21 Departure - Departure Time of Disposition: 09:23 Disposition: Home, Self-Care 01 Clinical Impression: Pleurisy CAP (community acquired pneumonia) Qualifiers: Laterality: left Lung location: upper lobe of lung Qualified Code(s): J18.9 - Pneumonia, unspecified organism Prescriptions: Amoxicillin/Clavulanate K [Augmentin 875-125 MG] 1 tab PO BID 7 Days #14 tablet Azithromycin [Zithromax] 250 mg PO DAILY #6 tab Instructions: Community-Acquired Pneumonia, Adult, Pleurisy, [id number] Referrals: Darrick Berrios, FIELD CONSULTANT [Primary Care Provider] - Forms: ED Department Discharge Additional Instructions: You are being diagnosed with a pneumonia Please take the prescribed antibiotic Return to the ER for worsening symptoms as discussed Please discuss your visit today with your oncologist when you follow up next week to ensure you can go forward with radiation therapy as planned. Sepsis Event Note - Evaluation Sepsis Screening Result: No Definite Risk - Focused Exam Vital Signs: Vital Signs Temp Pulse Resp BP BP Pulse Ox 03/08/19 08:49 83 25 H 90/52 L 93 L 03/08/19 08:29 83 22 H 93/50 L 93 L 03/08/19 08:19 88 25 H 100/54 L 94 L 03/08/19 07:54 89 16 98/56 L 92 L 03/08/19 07:49 93 20 76/52 L 93 L 03/08/19 07:39 89 96/53 L 03/08/19 07:29 97 18 91/58 L 94 L 03/08/19 07:19 97 20 87/51 L 96 03/08/19 07:09 100 17 89/55 L 92 L 03/08/19 06:59 100 14 80/48 L 92 L 03/08/19 06:49 106 H 13 100/65 97/58 L 93 L 03/08/19 06:44 36.9 C 98 15 100/65 94 L 03/08/19 06:43 36.9 C 98 15 100/65 94 L Date Exam was Performed: 03/08/19 Time Exam was Performed: 09:21 - My Orders Last 24 Hours: My Active Orders 03/08/19 07:50 Sodium Chloride 0.9% [Saline Flush] 10 ml FLUSH ONETIME PRN 03/08/19 08:00 Iopamidol [Isovue-370 (76%)] 80 ml IV . DIRECTED - Assessment/Plan Last 24 Hours: My Active Orders 03/08/19 07:50 Sodium Chloride 0.9% [Saline Flush] 10 ml FLUSH ONETIME PRN 03/08/19 08:00 Iopamidol [Isovue-370 (76%)] 80 ml IV . DIRECTED
[2019-03-08] MEDS ORDERED: Iopamidol 755 Mg/ML 100 ML Bottle IV SCH (08:00)
[2019-03-08 08:34] VITALS: PULSE 83
[2019-03-08 08:58] VITALS: BP 90/52
--- NOTE | 2019-03-08 09:02 | CRLCT ---
INDICATION: Dyspnea. Tachycardia. Lung cancer. TECHNIQUE: CT chest PE was acquired with 80 cc Isovue 370 IV contrast. COMPARISON: February 05, 2019. FINDINGS: Heart and vasculature: Contrast opacification of the pulmonary arterial tree is adequate. No sign of pulmonary embolism. Heart size is normal. Thoracic aorta and pulmonary artery are normal in caliber. Lungs and pleural: A new ill-defined airspace infiltrate in the left upper lobe is visualized on series 5, image 68. Subcentimeter spiculated nodule in the left upper lobe on series 5, image 54 has decreased in size. Previously seen left lower lobe nodule has resolved. However, there are 2 adjacent pleural based nodular infiltrates in the extreme left lung base on series 5, image 129 which have slightly increased. Moderate emphysema. No pleural effusions, pleural thickening, or pneumothorax. Lymph nodes/mediastinum: No mediastinal, hilar, or axillary adenopathy. Chest wall: No masses. Upper abdomen: Ill-defined low-attenuation liver lesions are unchanged. Bones: Unremarkable for age. IMPRESSION: 1. No pulmonary embolism. 2. New left upper lobe airspace infiltrate consistent with pneumonia. 3. Interval resolution of the previously seen left upper lobe nodule. Interval decrease in size of the previously seen left upper lobe spiculated nodule. However, 2 small peripheral nodules in the medial left lung base have increased in size. 4. No other acute findings or changes. Dictated by Oj Real MD @ 03/08/2019 9:00:12 AM Please note that all CT scans at this facility use dose modulation, iterative reconstruction, and/or weight-based dosing when appropriate to reduce radiation dose to as low as reasonably achievable. Dictated by: Oj Real MD @ 03/08/2019 09:00:17 (Electronically Signed)
== END 2019-03-08 09:29 | disposition home or self-care (01) ==
LOC: JP.ED 06:40
DX: R09.1 Pleurisy (principal); J18.9 Pneumonia, unspecified organism; J44.9 Chronic obstructive pulmonary disease, unspecified; E03.9 Hypothyroidism, unspecified; F17.210 Nicotine dependence, cigarettes, uncomplicated; Z88.8 Allergy status to other drugs, medicaments and biological substances; Z79.899 Other long term (current) drug therapy
CPT/HCPCS: 36415; 71045; 71275; 80053; 84484; 85025; 93005; 93010; 99284; 99285; A9270; J7050; Q9967

== ENCOUNTER 2019-08-27 10:30 | Inpatient (IN) | payer MEDICARE, MEDICAID ==
[2019-08-27] MEDS ORDERED: Albuterol/Ipratropium 3.0-0.5 MG/3 ML Neb Soln NEB ONE (10:44)
[2019-08-27] MEDS: Sodium Chloride 0.9% 10 ML Syringe FLUSH PRN ×2 (11:04→11:18)
[2019-08-27] MEDS ORDERED: Albuterol 0.083% 2.5 MG/3 ML Neb Soln NEB ONE (11:11)
[2019-08-27] MEDS ORDERED: methylPREDNISolone Sodium Succinate 125 MG/2 ML SDV IVPUSH ONE (11:11)
[2019-08-27] MEDS ORDERED: Albuterol 0.083% 2.5 MG/3 ML Neb Soln ONE (11:13)
[2019-08-27] MEDS ORDERED: Budesonide 0.5 MG/2 ML Neb Susp ONE (11:22)
[2019-08-27] MEDS ORDERED: Budesonide 0.5 MG/2 ML Neb Susp NEB ONE (11:23)
[2019-08-27] MEDS ORDERED: LORazepam 0.5 MG Tab PO ONE (12:08)
--- NOTE | 2019-08-27 12:09 | EDM.PDOC ---
ED HPI GENERAL MEDICAL PROBLEM - General Chief Complaint: Respiratory Problem Stated Complaint: SOB Time Seen by Provider: 08/27/19 10:35 Source of Information: Reports: Patient, Family, RN, RN Notes Reviewed History Limitations: Reports: No Limitations - History of Present Illness INITIAL COMMENTS - FREE TEXT/NARRATIVE: Cecilio is a 74 yo male that was sent over to ED from the infusion clinic. He was supposed to get chemotherapy there today for lung cancer but due to his respiratory status he was sent to ED. He c/o shortness of breath, increase in sputum production, and occasional chills. He was diagnosed with community acquired pneumonia about 2 weeks ago. He completed a course of doxycycline on 08/07/19 without much improvement. He was also put on oral prednisone at the same time but quit taking that early (per the ) cause he felt it wasn't helping. Cecilio was prescribed levaquin on 08/15/2019 and cefdinir on 08/20/2019 and he had a reaction to one of them (severe vomiting and diarrhea which made him very weak) and he quit taking the other one after 3 days cause he felt it wasn't helping. Cecilio states that the SOB became much worse over the last 2-3 days which was limiting his activity. His states that he has been using his home oxygen pretty much continuously at 3lpm. He has been using OTC Robitussin for the cough at home. Onset: Gradual Duration: Week(s): (2-3 weeks) Location: Reports: Chest - Related Data Allergies Allergy/AdvReac Type Severity Reaction Status Date / Time barium sulfate Allergy Intermediate Hives Verified 03/08/19 06:52 aspirin Allergy Other Verified 03/08/19 06:52 [From Excedrin Extra Strength] caffeine Allergy Other Verified 03/08/19 06:52 [From Excedrin Extra Strength] ibuprofen Allergy Itching Verified 03/08/19 06:52 Home Meds: Home Meds Furosemide [Lasix] 20 mg PO ASDIRECTED 04/26/17 [History] Levothyroxine Sodium [Synthroid] 175 mcg PO DAILY 04/26/17 [History] Ipratropium [Atrovent] 0.5 mg INH Q6H PRN #30 neb 06/03/17 [Rx] Albuterol Sulfate [Proair Hfa] 2 puff INH QID PRN 06/19/18 [History] Fluticasone Propion/Salmeterol [Advair 250-50 Diskus] 1 puff INH BID 06/19/18 [History] Moxifloxacin HCl [Moxifloxacin] 1 drop EYELF QID 06/19/18 [History] Triamcinolone Acetonide [Triamcinolone Acetonide 0.1% Oint] 1 applic TOP DAILY 06/19/18 [History] dexAMETHasone sodium phosphate [Dexonto] 1 drop EYELF QID 06/19/18 [History] guaiFENesin [Guaifenesin ER] 1,200 mg PO BID 06/19/18 [History] Albuterol/Ipratropium [DuoNeb 3.0-0.5 MG/3 ML] 1 inh INH Q4H PRN 07/03/18 [History] Clobetasol [Clobetasol Propionate 0.05%] 15 gm TOP BID 07/03/18 [History] Past Medical History HEENT History: Reports: Cataract, Hard of Hearing, Impaired Vision, Other (See Below) Other HEENT History: dentures. bilateral hearing aids Respiratory History: Reports: COPD Gastrointestinal History: Reports: Hemorrhoids Musculoskeletal History: Reports: Back Pain, Chronic Endocrine/Metabolic History: Reports: Hypothyroidism Oncologic (Cancer) History: Reports: Brain, Liver, Lung, Lymphoma Dermatologic History: Reports: Other (See Below) Other Dermatologic History: rash - Infectious Disease History Infectious Disease History: Reports: Chicken Pox, Measles, Mumps - Past Surgical History HEENT Surgical History: Reports: Cataract Surgery, Tonsillectomy Respiratory Surgical History: Reports: Lung Biopsies GI Surgical History: Reports: Other (See Below) Other GI Surgeries/Procedures: hemorrhoidectomy Male Surgical History: Reports: Vasectomy Musculoskeletal Surgical History: Reports: None Social & Family History - Family History Family Medical History: Noncontributory - Tobacco Use Smoking Status *Q: Former Smoker Used Tobacco, but Quit: Yes Month/Year Tobacco Last Used: MANY YEARS AGO - Caffeine Use Caffeine Use: Reports: Coffee - Recreational Drug Use Recreational Drug Use: No ED ROS GENERAL - Review of Systems Review Of Systems: See Below Constitutional: Reports: Chills, Weakness HEENT: Reports: Hearing Loss (chronic) Respiratory: Reports: Shortness of Breath, Wheezing, Cough, Sputum Cardiovascular: Reports: Dyspnea on Exertion Endocrine: Reports: No Symptoms GI/Abdominal: Reports: No Symptoms : Reports: No Symptoms Musculoskeletal: Reports: No Symptoms Skin: Reports: No Symptoms Neurological: Reports: No Symptoms Psychiatric: Reports: No Symptoms Hematologic/Lymphatic: Reports: No Symptoms Immunologic: Reports: No Symptoms ED EXAM, GENERAL - Physical Exam Exam: See Below Exam Limited By: No Limitations General Appearance: Alert, Moderate Distress Respiratory/Chest: Rhonchi (coarse), Wheezing, Prolonged Expiration Peripheral Pulses: 2+: Radial (L), Radial (R) GI/Abdominal: Normal Bowel Sounds Neurological: Alert, Oriented Psychiatric: Normal Affect Skin Exam: Warm Course - Vital Signs Last Recorded V/S: Last Vital Signs Temp 98.1 F 08/27/19 10:54 Pulse 115 H 08/27/19 10:54 Resp 22 H 08/27/19 10:43 BP 122/68 08/27/19 10:54 Pulse Ox 93 L 08/27/19 10:54 - Orders/Labs/Meds Orders: Active Orders 24 hr Category Date Time Status RT Aerosol Therapy [RC] ASDIRECTED Care 08/27/19 10:45 Active RT Aerosol Therapy [RC] ASDIRECTED Care 08/27/19 11:12 Active CULTURE BLOOD [BC] Urgent Lab 08/27/19 14:06 Received CULTURE BLOOD [BC] Urgent Lab 08/27/19 14:06 Received CULTURE RESPIRATORY + SMEAR [RM] Stat Lab 08/27/19 11:17 Results UA W/MICROSCOPIC [URIN] Stat Lab 08/27/19 11:14 Ordered Azithromycin [Zithromax] 500 mg Med 08/27/19 14:15 Active Sodium Chloride 0.9% [Normal Saline] 250 ml IV Q24H Sodium Chloride 0.9% [Saline Flush] Med 08/27/19 10:45 Active 10 ml FLUSH ASDIRECTED PRN Sodium Chloride 0.9% [Saline Flush] Med 08/27/19 12:39 Active 10 ml FLUSH ONETIME PRN Blood Culture x2 Reflex Set [OM.PC] Urgent Oth 08/27/19 13:28 Ordered Saline Lock Insert [OM.PC] Routine Oth 08/27/19 10:45 Ordered Medication Orders Azithromycin 500 mg/ Sodium (Chloride) 250 mls @ 250 mls/hr IV Q24H JOE Sodium Chloride (Saline Flush) 10 ml FLUSH ASDIRECTED PRN PRN Reason: Keep Vein Open Last Admin: 08/27/19 11:18 Dose: 10 ml Admin: 08/27/19 11:04 Dose: 10 ml Sodium Chloride (Saline Flush) 10 ml FLUSH ONETIME PRN PRN Reason: PER RADIOLOGY PROTOCOL Last Admin: 08/27/19 12:49 Dose: 10 ml Meds: Medications Generic Name Dose Route Start Last Admin Trade Name Freq PRN Reason Stop Dose Admin Azithromycin 500 mg/ Sodium 250 mls @ 250 mls/hr 08/27/19 14:15 Chloride IV Q24H JOE Sodium Chloride 10 ml 08/27/19 10:45 08/27/19 11:18 Saline Flush FLUSH 10 ml ASDIRECTED PRN Administration Keep Vein Open Sodium Chloride 10 ml 08/27/19 12:39 08/27/19 12:49 Saline Flush FLUSH 10 ml ONETIME PRN Administration PER RADIOLOGY PROTOCOL Discontinued Medications Generic Name Dose Route Start Last Admin Trade Name Freq PRN Reason Stop Dose Admin Albuterol 2.5 mg 08/27/19 11:11 08/27/19 11:15 Proventil Neb Soln NEB 08/27/19 11:12 2.5 mg ONETIME ONE Administration Albuterol Confirm 08/27/19 11:13 08/27/19 11:20 Proventil Neb Soln Administered 08/27/19 11:14 Not Given Dose 2.5 mg .ROUTE .STK-MED ONE Albuterol/Ipratropium 3 ml 08/27/19 10:44 08/27/19 10:58 Duoneb 3.0-0.5 Mg/3 Ml NEB 08/27/19 10:45 3 ml ONETIME ONE Administration Budesonide 0.5 mg 08/27/19 11:23 08/27/19 11:24 Pulmicort NEB 08/27/19 11:24 0.5 mg ONETIME ONE Administration Budesonide Confirm 08/27/19 11:22 08/27/19 11:24 Pulmicort Administered 08/27/19 11:23 Not Given Dose 0.5 mg .ROUTE .STK-MED ONE Sodium Chloride 75 mls @ 3 mls/sec 08/27/19 12:39 08/27/19 12:49 Normal Saline IV 08/27/19 12:40 3 mls/sec ONETIME ONE Administration Iopamidol 100 ml 08/27/19 12:39 08/27/19 12:49 Isovue-300 (61%) IV 100 ml . DIRECTED PRN Administration RADIOLOGY EXAM Lorazepam 0.5 mg 08/27/19 12:08 08/27/19 12:15 Ativan PO 08/27/19 12:09 0.5 mg ONETIME ONE Administration Methylprednisolone Sodium Succinate 125 mg 08/27/19 11:11 08/27/19 11:18 Solu-Medrol IVPUSH 08/27/19 11:12 125 mg ONETIME ONE Administration - Radiology Interpretation Free Text/Narrative:: chest x-ray and ct- bilateral infiltrates. - Re-Assessments/Exams Free Text/Narrative Re-Assessment/Exam: 08/27/19 11:30 pt presents with coarse rhonchi, expiratory wheezing, prolonged expiratory phase. Duo neb given with some improvement but still wheezing significantly. albuterol and budesonide nebs given with more improvement in wheezing. 08/27/19 12:51 pt continues to wheeze and have coarse rhonchi. Departure - Departure Time of Disposition: 13:34 Disposition: Admitted As Inpatient 64 Clinical Impression: Lung cancer metastatic to brain, COPD exacerbation, Bronchospasm - Discharge Information *PRESCRIPTION DRUG MONITORING PROGRAM REVIEWED*: Not Applicable *COPY OF PRESCRIPTION DRUG MONITORING REPORT IN PATIENT JASON: Not Applicable Sepsis Event Note (ED) - Evaluation Sepsis Screening Result: No Definite Risk - Focused Exam Vital Signs: Vital Signs Temp Pulse Resp BP Pulse Ox 08/27/19 10:54 98.1 F 115 H 122/68 93 L 08/27/19 10:43 98.1 F 115 H 22 H 122/68 93 L - My Orders Last 24 Hours: My Active Orders 08/27/19 10:45 RT Aerosol Therapy [RC] ASDIRECTED Sodium Chloride 0.9% [Saline Flush] 10 ml FLUSH ASDIRECTED PRN Saline Lock Insert [OM.PC] Routine 08/27/19 11:12 RT Aerosol Therapy [RC] ASDIRECTED 08/27/19 11:14 UA W/MICROSCOPIC [URIN] Stat 08/27/19 11:17 CULTURE RESPIRATORY + SMEAR [RM] Stat 08/27/19 13:28 Blood Culture x2 Reflex Set [OM.PC] Urgent 08/27/19 14:06 CULTURE BLOOD [BC] Urgent CULTURE BLOOD [BC] Urgent - Assessment/Plan Last 24 Hours: My Active Orders 08/27/19 10:45 RT Aerosol Therapy [RC] ASDIRECTED Sodium Chloride 0.9% [Saline Flush] 10 ml FLUSH ASDIRECTED PRN Saline Lock Insert [OM.PC] Routine 08/27/19 11:12 RT Aerosol Therapy [RC] ASDIRECTED 08/27/19 11:14 UA W/MICROSCOPIC [URIN] Stat 08/27/19 11:17 CULTURE RESPIRATORY + SMEAR [RM] Stat 08/27/19 13:28 Blood Culture x2 Reflex Set [OM.PC] Urgent 08/27/19 14:06 CULTURE BLOOD [BC] Urgent CULTURE BLOOD [BC] Urgent Plan: call to Dr. Keith for hospital admission for IV antibiotics.
[2019-08-27] MEDS ORDERED: Sodium Chloride 0.9% 10 ML Syringe FLUSH PRN (12:39)
[2019-08-27] MEDS ORDERED: Sodium Chloride 0.9% 75 ML IV ONE (12:39)
[2019-08-27] MEDS ORDERED: Iopamidol 612 MG/ML 100 ML Bottle IV PRN (12:39)
--- NOTE | 2019-08-27 13:05 | CR ---
CHEST: 2 view CLINICAL HISTORY:SOB COMPARISON:February 2019 FINDINGS: Heart size and pulmonary vascularity are normal. There are atherosclerotic changes in the aorta.. There is patchy density in both infrahilar regions. Lungs are generally hyperaerated. Impression: Bibasal infiltrates Hyperinflation.
--- NOTE | 2019-08-27 13:21 | CT ---
Chest w Cont CLINICAL HISTORY: Pneumonia TECHNIQUE: Transverse scans were obtained from the thoracic inlet to the lung bases with contrast. Auto dosage reduction and iterative reconstruction techniques employed. COMPARISONS: April 2019 FINDINGS: Lungs are emphysematous. There is a large right perihilar bullous. There are scattered small irregular densities the throughout both lower lobes.. There are some small nodular densities in the right upper lobe. There is areas of scarring and infiltrate in the right middle lobe. There is bronchial thickening bilaterally. There is an enlarged right hilar lymph nodes similar to prior study. No new mass or adenopathy seen. There are no pleural effusions. Scans in the upper abdomen show low-attenuation lesions in the liver similar to prior study. IMPRESSION: Patchy bilateral infiltrates and nodularity suggests the some element of chronic infection. Superimposed acute pneumonic infiltrate is not excluded in the bases. Stable right hilar lymph node Stable low-attenuation lesions in the liver COPD
[2019-08-27] MEDS ORDERED: Azithromycin 500 MG in Sodium Chloride 0.9% 250 ML IV SCH (14:15)
--- NOTE | 2019-08-27 14:17 | PCM.HP.2 ---
H&P History of Present Illness - General Date of Service: 08/27/19 Admit Problem/Dx: Admission Diagnosis/Problem Admission Diagnosis/Problem Pneumonia Source of Information: Patient, Provider History Limitations: Reports: No Limitations - History of Present Illness Initial Comments - Free Text/Narative: CC: I have a hitch in my giddyup HPI: Ej was sent to the emergency room from the infusion center where they noted increased work of breathing and wheezing. He reports that he has been feeling short of breath and coughing for about the last 2-1/2 weeks. Symptoms have slowly progressed throughout that time with a more rapid acceleration in the past 2 to 3 days. He is short of breath with any activity. He has a frequent productive cough with chou-colored sputum. No hemoptysis. He has had a few chills at home but no fevers that he is aware of. He has no energy. Appetite has been stable. No abdominal pain or nausea. No obvious sick contacts. He has had 3 different courses of antibiotics though he was only able to complete the doxycycline. He had only a couple of doses of levofloxacin and cefdinir. He had several days of steroids but quit these several days ago. No complaints of chest pain. He does have loose stools since his last round of antibiotics. Work-up in the clinic revealed a white blood cell count of 15,000 but otherwise unremarkable labs. Chest x-ray in the emergency room was suggestive of a right lower lobe pneumonia. A CT scan showed patchy bilateral lower lobe infiltrates. He has had significant wheezing and increased work of breathing but has not been hypoxic. His COVID19 test was negative last week. He will be admitted for management of a bilateral pneumonia that has failed outpatient management. - Related Data Allergies/Adverse Reactions: Allergies Allergy/AdvReac Type Severity Reaction Status Date / Time barium sulfate Allergy Intermediate Hives Verified 03/08/19 06:52 aspirin Allergy Other Verified 03/08/19 06:52 [From Excedrin Extra Strength] caffeine Allergy Other Verified 03/08/19 06:52 [From Excedrin Extra Strength] ibuprofen Allergy Itching Verified 03/08/19 06:52 Home Medications: Home Meds Furosemide [Lasix] 20 mg PO ASDIRECTED 04/26/17 [History] Levothyroxine Sodium [Synthroid] 175 mcg PO DAILY 04/26/17 [History] Ipratropium [Atrovent] 0.5 mg INH Q6H PRN #30 neb 06/03/17 [Rx] Albuterol Sulfate [Proair Hfa] 2 puff INH QID PRN 06/19/18 [History] Fluticasone Propion/Salmeterol [Advair 250-50 Diskus] 1 puff INH BID 06/19/18 [ History] Moxifloxacin HCl [Moxifloxacin] 1 drop EYELF QID 06/19/18 [History] Triamcinolone Acetonide [Triamcinolone Acetonide 0.1% Oint] 1 applic TOP DAILY 06/19/18 [History] dexAMETHasone sodium phosphate [Dexonto] 1 drop EYELF QID 06/19/18 [History] guaiFENesin [Guaifenesin ER] 1,200 mg PO BID 06/19/18 [History] Albuterol/Ipratropium [DuoNeb 3.0-0.5 MG/3 ML] 1 inh INH Q4H PRN 07/03/18 [ History] Clobetasol [Clobetasol Propionate 0.05%] 15 gm TOP BID 07/03/18 [History] Past Medical History HEENT History: Reports: Cataract, Hard of Hearing, Impaired Vision, Other (See Below) Other HEENT History: dentures. bilateral hearing aids Respiratory History: Reports: COPD Gastrointestinal History: Reports: Hemorrhoids Musculoskeletal History: Reports: Back Pain, Chronic Endocrine/Metabolic History: Reports: Hypothyroidism Oncologic (Cancer) History: Reports: Brain, Liver, Lung, Lymphoma Dermatologic History: Reports: Other (See Below) Other Dermatologic History: rash - Infectious Disease History Infectious Disease History: Reports: Chicken Pox, Measles, Mumps - Past Surgical History HEENT Surgical History: Reports: Cataract Surgery, Tonsillectomy Respiratory Surgical History: Reports: Lung Biopsies GI Surgical History: Reports: Other (See Below) Other GI Surgeries/Procedures: hemorrhoidectomy Male Surgical History: Reports: Vasectomy Musculoskeletal Surgical History: Reports: None Social & Family History - Family History Family Medical History: Noncontributory - Tobacco Use Smoking Status *Q: Former Smoker Used Tobacco, but Quit: Yes Month/Year Tobacco Last Used: MANY YEARS AGO - Caffeine Use Caffeine Use: Reports: Coffee - Alcohol Use Alcohol Use History: Yes Days Per Week of Alcohol Use: 2 - Recreational Drug Use Recreational Drug Use: No H&P Review of Systems - Review of Systems: Review Of Systems: See Below Free Text/Narrative: A complete 12 point review of systems was obtained. Pertinent positives and negatives are noted in the history of present illness. All other systems were reviewed and were negative except as noted. Exam - Exam Exam: See Below - Vital Signs Vital Signs: Last Vital Signs Temp 36.7 C 08/27/19 10:54 Pulse 115 H 08/27/19 10:54 Resp 22 H 08/27/19 10:43 BP 122/68 08/27/19 10:54 Pulse Ox 93 L 08/27/19 10:54 Weight: 92.079 kg - Exam Quality Assessment: No: Supplemental Oxygen General: Alert, Oriented, Cooperative. No: Mild Distress HEENT: Conjunctiva Clear, Mucosa Moist & [place]. No: Scleral Icterus Neck: Supple, Trachea Midline Lungs: Wheezing (diffuse exp ). No: Normal Respiratory Effort (increased work of breathing ) Cardiovascular: Regular Rhythm, Tachycardia. No: Systolic Murmur GI/Abdominal Exam: Normal Bowel Sounds, Soft, No Distention Back Exam: Normal Inspection, Full Range of Motion Extremities: No Pedal Edema, Other (left ankle larger than right (pt reports this is chronic)). No: Increased Warmth Skin: Warm, Dry Neuro Extensive - Mental Status: Alert, Oriented x3, Nl Response to Commands Neuro Extensive - Motor, Sensory, Reflexes: No: Dysarthria, Abnormal Motor, Tremor Psychiatric: Alert, Normal Affect - Patient Data Lab Results Last 24 hrs: WBC 15.5 Creatinine 1.08 GFR>60 Lucas Results Last 24 hrs: Microbiology 08/27/19 11:17 Gram Stain - Final Sputum - Expectorated Imaging Impressions Last 24 hrs: CXR-image personally reviewed-probable right lower lobe pneumonia. Heart size is normal. No effusions. No obvious masses. CT chest-patchy bilateral lower lobe infiltrates thought to represent a subacute infection. There is some chronic bronchial thickening. The left upper lobe mass that was previously noted has shrunk in size. Mediastinal lymph node is stable to slightly improved. Sepsis Event Note - Evaluation Sepsis Screening Result: No Definite Risk - Focused Exam Vital Signs: Vital Signs Temp Pulse Resp BP Pulse Ox 08/27/19 10:54 36.7 C 115 H 122/68 93 L 08/27/19 10:43 36.7 C 115 H 22 H 122/68 93 L Date Exam was Performed: 08/27/19 Time Exam was Performed: 14:33 *Q Meaningful Use (ADM) - VTE Risk Assess *Q Each Risk Factor Represents 1 Point: Serious lung disease including pneumonia, Abnormal Pulmonary Function (COPD) Total Score 1 Point Risk Factors: 2 Each Risk Factor Represents 2 Points: Malignancy (present or previous) Total Score 2 Point Risk Factors: 2 Each Risk Factor Represents 3 Points: Age 75 Years or Greater Total Score 3 Point Risk Factors: 3 Each Risk Factor Represents 5 Points: None Total Score 5 Point Risk Factors: 0 Venous Thromboembolism Risk Factor Score *Q: 7 - Problem List (1) CAP (community acquired pneumonia) SNOMED Code(s): 679402472 ICD Code: J18.9 - PNEUMONIA, UNSPECIFIED ORGANISM Status: Acute Current Visit: No Qualifiers: Lung location: lower lobe of lung (2) COPD exacerbation SNOMED Code(s): 742766588 ICD Code: J44.1 - CHRONIC OBSTRUCTIVE PULMONARY DISEASE W (ACUTE) EXACERBATION Status: Acute Current Visit: Yes (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 SNOMED Code(s): 62395542 ICD Code: C34.90 - MALIGNANT NEOPLASM OF UNSP PART OF UNSP BRONCHUS OR LUNG; C79.31 - SECONDARY MALIGNANT NEOPLASM OF BRAIN Status: Chronic Current Visit : Yes Problem List Initiated/Reviewed/Updated: Yes Orders Last 24hrs: Active Orders 24 hr Category Date Time Status Patient Status Manage Transfer [TRANSFER] Routine ADT 08/27/19 14:05 Ordered RT Aerosol Therapy [RC] ASDIRECTED Care 08/27/19 10:45 Active RT Aerosol Therapy [RC] ASDIRECTED Care 08/27/19 11:12 Active CULTURE BLOOD [BC] Urgent Lab 08/27/19 14:06 Received CULTURE BLOOD [BC] Urgent Lab 08/27/19 14:06 Received CULTURE RESPIRATORY + SMEAR [RM] Stat Lab 08/27/19 11:17 Results UA W/MICROSCOPIC [URIN] Stat Lab 08/27/19 11:14 Ordered Azithromycin [Zithromax] 500 mg Med 08/27/19 14:15 Active Sodium Chloride 0.9% [Normal Saline] 250 ml IV Q24H Sodium Chloride 0.9% [Saline Flush] Med 08/27/19 10:45 Active 10 ml FLUSH ASDIRECTED PRN Sodium Chloride 0.9% [Saline Flush] Med 08/27/19 12:39 Active 10 ml FLUSH ONETIME PRN Blood Culture x2 Reflex Set [OM.PC] Urgent Oth 08/27/19 13:28 Ordered Saline Lock Insert [OM.PC] Routine Oth 08/27/19 10:45 Ordered Resuscitation Status Routine Resus Stat 08/27/19 14:08 Ordered Medication Orders Azithromycin 500 mg/ Sodium (Chloride) 250 mls @ 250 mls/hr IV Q24H JOE Sodium Chloride (Saline Flush) 10 ml FLUSH ASDIRECTED PRN PRN Reason: Keep Vein Open Last Admin: 08/27/19 11:18 Dose: 10 ml Admin: 08/27/19 11:04 Dose: 10 ml Sodium Chloride (Saline Flush) 10 ml FLUSH ONETIME PRN PRN Reason: PER RADIOLOGY PROTOCOL Last Admin: 08/27/19 12:49 Dose: 10 ml Assessment/Plan Comment:: ASSESSMENT AND PLAN - Bilateral lower lobe pneumonia-this has failed outpatient therapy with several different courses of antibiotics. Complicated by an exacerbation of his COPD as discussed below. He would benefit from IV antibiotics. Respiratory culture obtained in the emergency room did show some gram-positive cocci and a few gram- negative rods but identification is pending. Previous antibiotics have included doxycycline, levofloxacin and cefdinir. -Antibiotic coverage with azithromycin and ceftriaxone -IV steroids -Scheduled and as needed nebulizers -Supplement oxygen if needed -Symptomatic management of cough -Follow-up respiratory culture and blood cultures Acute exacerbation of COPD-significant wheezing and impaired airflow noted on examination. He had been on medium dose prednisone up to several days ago. -IV Solu-Medrol -Additional management as above Stage IV non-small cell lung cancer-so far he has been responding to chemotherapy with smaller lung mass noted and stable liver lesions. -Outpatient oncology follow-up Maintenance issues - - DVT prophylaxis -mechanical - GI prophylaxis -not indicated - Nutrition -regular - Beverly catheter -not indicated CODE STATUS -DNR/DNI Admission justification -this patient will be admitted for inpatient services and is medically appropriate meeting medical necessity for inpatient admission as outlined in my documentation. I reasonably expect the patient will require inpatient services that span a period time over 2 midnights. I reasonably expect this patient to be discharged or transferred within 96 hours [facility] Patient has failed outpatient therapy with 3 different courses of outpatient antibiotics not leading to improvement. Disposition -I would anticipate discharge home after the hospital stay Primary care physician -Darrick Keith M.D. - Mortality Measure Prognosis:: Good
[2019-08-27] MEDS ORDERED: Ondansetron 4 MG/2 ML SDV IV PRN (14:23)
[2019-08-27] MEDS ORDERED: LORazepam 0.5 MG Tab PO PRN (14:23)
[2019-08-27] MEDS ORDERED: Acetaminophen 325 MG Tab PO PRN (14:23)
[2019-08-27] MEDS ORDERED: Albuterol 0.083% 2.5 MG/3 ML Neb Soln NEB PRN (14:23)
[2019-08-27] MEDS ORDERED: LORazepam 2 MG/ML SDV IVPUSH PRN (14:23)
[2019-08-27] MEDS ORDERED: Benzonatate 100 MG Cap PO PRN (14:23)
[2019-08-27] MEDS ORDERED: Codeine/guaiFENesin 100mg-10 MG/5 ML Syrup 10 ML Cup PO PRN (14:23)
[2019-08-27] MEDS ORDERED: Ondansetron 4 MG Tab.DIS PO PRN (14:23)
[2019-08-27] MEDS ORDERED: Melatonin 3 MG Tab PO PRN (14:23)
[2019-08-27] MEDS: Albuterol/Ipratropium 3.0-0.5 MG/3 ML Neb Soln NEB SCH ×2 (14:39→21:32)
[2019-08-27] MEDS ORDERED: cefTRIAXone 2 GM in Sodium Chloride 0.9% 50 ML IV SCH (15:00)
[2019-08-27] MEDS ORDERED: DEXAMETHASONE SODIUM PHOSPHATE EYELF SCH (16:00)
[2019-08-27] MEDS: Azithromycin 500 MG in Sodium Chloride 0.9% 250 ML IV SCH (16:00)
[2019-08-27] MEDS: Moxifloxacin 0.5% Ophth Soln 3 ML Bottle EYELF SCH ×2 (17:15→21:32)
[2019-08-27] MEDS: methylPREDNISolone Sodium Succinate 125 MG/2 ML SDV IVPUSH SCH (17:23)
[2019-08-27] MEDS: Lactobacillus Rhamnosus GG (Probiotic) Cap PO SCH (21:32)
[2019-08-28] MEDS: methylPREDNISolone Sodium Succinate 125 MG/2 ML SDV IVPUSH SCH ×3 (01:37→19:42)
[2019-08-28] MEDS: Sodium Chloride 0.9% 10 ML Syringe FLUSH PRN (04:55)
[2019-08-28] MEDS: Moxifloxacin 0.5% Ophth Soln 3 ML Bottle EYELF SCH ×4 (06:00→21:32)
[2019-08-28] MEDS: Albuterol/Ipratropium 3.0-0.5 MG/3 ML Neb Soln NEB SCH ×4 (07:05→21:32)
[2019-08-28] MEDS: Levothyroxine 100 MCG, Levothyroxine 25 MCG, Levothyroxine 50 MCG PO SCH ×3 (08:15)
[2019-08-28] MEDS ORDERED: Non-Formulary Medication 1 Each (Levothyroxine Sodium [Synthroid] 175 MCG) PO SCH (09:00)
--- NOTE | 2019-08-28 09:57 | PCM.PN ---
- General Info Date of Service: 08/28/19 Subjective Update: There were no acute events overnight. He did not have any fevers. He is now on 2 L of supplemental oxygen with good oxygenation. He thinks that he is breathing easier today. He continues to have a productive cough. He was able to walk to the bathroom and back. No complaints of chest pain. Appetite is good. He slept fairly well last night. His respiratory culture from yesterday is growing a gram-negative loren but identification is pending. Functional Status: Reports: Pain Controlled, Tolerating Diet - Review of Systems General: Reports: Weakness. Denies: Fever Pulmonary: Reports: Shortness of Breath, Cough, Sputum - Patient Data Vitals - Most Recent: Last Vital Signs Temp 36.7 C 08/28/19 08:00 Pulse 98 08/28/19 08:00 Resp 22 H 08/28/19 08:00 BP 106/47 L 08/28/19 08:00 Pulse Ox 92 L 08/28/19 08:00 Weight - Most Recent: 94.347 kg I&O - Last 24 Hours: Intake & Output 08/27/19 08/28/19 08/28/19 22:59 06:59 14:59 Intake Total 600 800 Output Total 550 500 Balance 50 300 Lab Results Last 24 Hours: Laboratory Results - last 24 hr 08/28/19 08/28/19 Range/Units 05:11 05:11 WBC 15.8 H (4.5-11.0) K/uL RBC 5.25 (4.30-5.90) M/uL Hgb 14.3 (12.0-15.0) g/dL Hct 44.4 (40.0-54.0) % MCV 85 (80-98) fL MCH 27 (27-31) pg MCHC 32 (32-36) % Plt Count 200 (150-400) K/uL Sodium 138 L (140-148) mmol/L Potassium 5.5 H (3.6-5.2) mmol/L Chloride 103 (100-108) mmol/L Carbon Dioxide 32 (21-32) mmol/L Anion Gap 8.5 (5.0-14.0) mmol/L BUN 19 H (7-18) mg/dL Creatinine 1.3 (0.8-1.3) mg/dL Est Cr Clr Drug Dosing 45.20 mL/min Estimated GFR (MDRD) 54 L (>60) Glucose 179 H (74-106) mg/dL Calcium 8.7 (8.5-10.1) mg/dL Lucas Results Last 24 Hours: Microbiology 08/27/19 11:17 Gram Stain - Final Sputum - Expectorated Respiratory Culture - Preliminary Med Orders - Current: Current Medications Acetaminophen (Tylenol) 650 mg PO Q4H PRN PRN Reason: Pain (Mild 1-3)/fever Albuterol (Proventil Neb Soln) 2.5 mg NEB Q2H PRN PRN Reason: Shortness Of Breath/wheezing Albuterol/Ipratropium (Duoneb 3.0-0.5 Mg/3 Ml) 3 ml NEB QIDRT [facility] Last Admin: 08/28/19 07:05 Dose: 3 ml Documented by: Benzonatate (Tessalon Perles) 100 mg PO TID PRN PRN Reason: Cough Guaifenesin/Codeine Phosphate (Robitussin Ac) 10 ml PO Q4H PRN PRN Reason: Cough Azithromycin 500 mg/ Sodium (Chloride) 250 mls @ 250 mls/hr IV Q24H [facility] Last Admin: 08/27/19 16:00 Dose: 250 mls/hr Documented by: Lactobacillus Rhamnosus (Culturelle) 1 cap PO BID [facility] Last Admin: 08/27/19 21:32 Dose: 1 cap Documented by: Levothyroxine Sodium 100 mcg/Levothyroxine Sodium 25 mcg/Levothyroxine Sodium 50 mcg 175 mcg PO ACBREAKFAST [facility] Last Admin: 08/28/19 08:15 Dose: 175 mcg Documented by: Lorazepam (Ativan) 0.5 mg IVPUSH Q4H PRN PRN Reason: Nausea/Vomiting Lorazepam (Ativan) 0.5 mg PO Q4H PRN PRN Reason: Anxiety Melatonin (Melatonin) 9 mg PO BEDTIME PRN PRN Reason: Sleep Methylprednisolone Sodium Succinate (Solu-Medrol) 62.5 mg IVPUSH Q8H [facility] Last Admin: 08/28/19 01:37 Dose: 62.5 mg Documented by: Moxifloxacin HCl (Vigamox 0.5% Ophth Soln) 0 ml EYELF QID [facility] Last Admin: 08/28/19 06:00 Dose: 1 drop Documented by: Non-Formulary Medication (Dexamethasone Sodium Phosphate [Dexonto]) 1 drop EYELF QID JOE Non-Formulary Medication (Fluticasone Propion/Salmeterol [Advair 250-50 Diskus]) 1 puff INH BID JOE Ondansetron HCl (Zofran Odt) 4 mg PO Q6H PRN PRN Reason: Nausea able to take PO Ondansetron HCl (Zofran) 4 mg IV Q6H PRN PRN Reason: Nausea/Vomiting Senna/Docusate Sodium (Senna Plus) 1 tab PO BID PRN PRN Reason: Constipation Sodium Chloride (Saline Flush) 10 ml FLUSH ASDIRECTED PRN PRN Reason: Keep Vein Open Last Admin: 08/28/19 04:55 Dose: 10 ml Documented by: Discontinued Medications Albuterol (Proventil Neb Soln) 2.5 mg NEB ONETIME ONE Stop: 08/27/19 11:12 Last Admin: 08/27/19 11:15 Dose: 2.5 mg Documented by: Albuterol (Proventil Neb Soln) Confirm Administered Dose 2.5 mg .ROUTE .STK-MED ONE Stop: 08/27/19 11:14 Last Admin: 08/27/19 11:20 Dose: Not Given Documented by: Albuterol/Ipratropium (Duoneb 3.0-0.5 Mg/3 Ml) 3 ml NEB ONETIME ONE Stop: 08/27/19 10:45 Last Admin: 08/27/19 10:58 Dose: 3 ml Documented by: Budesonide (Pulmicort) 0.5 mg NEB ONETIME ONE Stop: 08/27/19 11:24 Last Admin: 08/27/19 11:24 Dose: 0.5 mg Documented by: Budesonide (Pulmicort) Confirm Administered Dose 0.5 mg .ROUTE .STK-MED ONE Stop: 08/27/19 11:23 Last Admin: 08/27/19 11:24 Dose: Not Given Documented by: Sodium Chloride (Normal Saline) 75 mls @ 3 mls/sec IV ONETIME ONE Stop: 08/27/19 12:40 Last Admin: 08/27/19 12:49 Dose: 3 mls/sec Documented by: Ceftriaxone Sodium 2 gm/ (Sodium Chloride) 50 mls @ 100 mls/hr IV Q24H [facility] Last Admin: 08/27/19 15:02 Dose: 100 mls/hr Documented by: Iopamidol (Isovue-300 (61%)) 100 ml IV . DIRECTED PRN PRN Reason: RADIOLOGY EXAM Last Admin: 08/27/19 12:49 Dose: 100 ml Documented by: Lorazepam (Ativan) 0.5 mg PO ONETIME ONE Stop: 08/27/19 12:09 Last Admin: 08/27/19 12:15 Dose: 0.5 mg Documented by: Methylprednisolone Sodium Succinate (Solu-Medrol) 125 mg IVPUSH ONETIME ONE Stop: 08/27/19 11:12 Last Admin: 08/27/19 11:18 Dose: 125 mg Documented by: Sodium Chloride (Saline Flush) 10 ml FLUSH ONETIME PRN PRN Reason: PER RADIOLOGY PROTOCOL Last Admin: 08/27/19 12:49 Dose: 10 ml Documented by: - Exam Quality Assessment: Supplemental Oxygen General: Alert, Oriented, Cooperative, No Acute Distress Lungs: Normal Respiratory Effort, Rhonchi (diffuse renee upper lungs), Wheezing (diffuse exp ) Cardiovascular: Regular Rate, Regular Rhythm GI/Abdominal Exam: Soft, No Distention Extremities: No Pedal Edema. No: Increased Warmth Skin: Warm, Dry Psy/Mental Status: Alert, Normal Affect Sepsis Event Note - Evaluation Sepsis Screening Result: Severe Sepsis Risk - Focused Exam Vital Signs: Vital Signs Temp Pulse Resp BP Pulse Ox 08/28/19 08:00 36.7 C 98 22 H 106/47 L 92 L 08/28/19 03:05 36.6 C 94 16 127/61 96 08/28/19 00:00 36.8 C 104 H 24 H 142/63 H 91 L Date Exam was Performed: 08/28/19 Time Exam was Performed: 14:43 - Problem List & Annotations (1) CAP (community acquired pneumonia) SNOMED Code(s): 869836544 Code(s): J18.9 - PNEUMONIA, UNSPECIFIED ORGANISM Status: Resolved Current Visit: No Qualifiers: Lung location: lower lobe of lung (2) COPD exacerbation SNOMED Code(s): 242271363 Code(s): J44.1 - CHRONIC OBSTRUCTIVE PULMONARY DISEASE W (ACUTE) EXACERBATION Status: Acute Current Visit: Yes (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 SNOMED Code(s): 09111451 Code(s): C34.90 - MALIGNANT NEOPLASM OF UNSP PART OF UNSP BRONCHUS OR LUNG; C79.31 - SECONDARY MALIGNANT NEOPLASM OF BRAIN Status: Chronic Current Visit: Yes - Problem List Review Problem List Initiated/Reviewed/Updated: Yes - My Orders Last 24 Hours: My Active Orders 08/27/19 14:08 Resuscitation Status Routine 08/27/19 14:23 Acetaminophen [Tylenol] 650 mg PO Q4H PRN Albuterol [Proventil Neb Soln] 2.5 mg NEB Q2H PRN Benzonatate [Tessalon Perles] 100 mg PO TID PRN Codeine/guaiFENesin [Robitussin AC] 10 ml PO Q4H PRN Docusate Sodium/Sennosides [Senna Plus] 1 tab PO BID PRN LORazepam [Ativan] 0.5 mg IVPUSH Q4H PRN LORazepam [Ativan] 0.5 mg PO Q4H PRN Melatonin 9 mg PO BEDTIME PRN Ondansetron [Zofran ODT] 4 mg PO Q6H PRN Ondansetron [Zofran] 4 mg IV Q6H PRN 08/27/19 14:23 Patient Status [ADT] Routine Antiembolic Devices [RC] .Routine Intake and Output [RC] QSHIFT Notify Provider Vital Signs [RC] ASDIRECTED Oxygen Therapy [RC] PRN RT Aerosol Therapy [RC] ASDIRECTED Up With Assistance [RC] ASDIRECTED VTE/DVT Education [RC] Per Unit Routine Vital Signs [RC] Q4H Sequential Compression Device [OM.PC] Routine 08/27/19 15:00 Albuterol/Ipratropium [DuoNeb 3.0-0.5 MG/3 ML] 3 ml NEB QIDRT Azithromycin [Zithromax] 500 mg Sodium Chloride 0.9% [Normal Saline] 250 ml IV Q24H 08/27/19 16:00 Moxifloxacin [Vigamox 0.5% Ophth Soln] 0 ml EYELF QID dexAMETHasone sodium phosphate [Dexonto] 1 drop EYELF QID 08/27/19 Dinner Regular Diet [DIET] 08/27/19 18:00 methylPREDNISolone Sod Succ [Solu-MEDROL] 62.5 mg IVPUSH Q8H 08/27/19 21:00 Fluticasone Propion/Salmeterol [Advair 250-50 Diskus] 1 puff INH BID Lactobacillus Rhamnosus GG [Culturelle] 1 cap PO BID 08/28/19 07:30 Levothyroxine [Synthroid] 175 mcg PO ACBREAKFAST 08/28/19 10:00 guaiFENesin [Mucinex] 600 mg PO BID 08/28/19 14:00 cefTAZidime Pentahydrate [Fortaz] 1 gm Sodium Chloride 0.9% [Normal Saline] 50 ml IV Q8HR 08/29/19 05:00 BASIC METABOLIC PANEL,BMP [CHEM] Timed CBC W/O DIFF,HEMOGRAM [HEME] Timed (1) - Plan Plan:: ASSESSMENT AND PLAN - Bilateral lower lobe pneumonia-this has failed outpatient therapy with several different courses of antibiotics. Complicated by an exacerbation of his COPD. Moving better air today but still quite wheezy and quite rhonchorous. No fevers. Sputum culture with a gram-negative loren but identification is pending. Tolerating therapy so far. -Continue azithromycin -Start ceftazidime in case he has Pseudomonas -IV steroids, transition to prednisone tomorrow if improvement continues -Scheduled and as needed nebulizers -Supplement oxygen if needed -Symptomatic management of cough -Follow-up respiratory culture and blood cultures Acute exacerbation of COPD-somewhat better today but still quite compromised. He now has hypoxia requiring supplemental oxygen administration. -IV Solu-Medrol -Additional management as above Stage IV non-small cell lung cancer-so far he has been responding to chemother apy with smaller lung mass noted and stable liver lesions. -Outpatient oncology follow-up Maintenance issues - - DVT prophylaxis -mechanical - GI prophylaxis -not indicated - Nutrition -regular Disposition -I would anticipate discharge home after the hospital stay Primary care physician -Darrick Keith M.D.
[2019-08-28] MEDS: Lactobacillus Rhamnosus GG (Probiotic) Cap PO SCH ×2 (10:00→21:32)
[2019-08-28] MEDS: guaiFENesin 600 MG Tab.ER PO SCH ×2 (10:32→21:32)
[2019-08-28] MEDS: Azithromycin 500 MG in Sodium Chloride 0.9% 250 ML IV SCH (14:45)
[2019-08-28] MEDS: ADVAIR INH SCH (21:31)
[2019-08-29] MEDS: methylPREDNISolone Sodium Succinate 125 MG/2 ML SDV IVPUSH SCH ×2 (02:48→10:32)
[2019-08-29] MEDS: Moxifloxacin 0.5% Ophth Soln 3 ML Bottle EYELF SCH ×4 (05:32→22:08)
[2019-08-29] MEDS: Levothyroxine 100 MCG, Levothyroxine 25 MCG, Levothyroxine 50 MCG PO SCH ×3 (07:52)
[2019-08-29] MEDS: ADVAIR INH SCH ×2 (07:57→20:13)
[2019-08-29] MEDS: Lactobacillus Rhamnosus GG (Probiotic) Cap PO SCH ×2 (08:01→20:13)
[2019-08-29] MEDS: guaiFENesin 600 MG Tab.ER PO SCH ×2 (08:01→20:13)
[2019-08-29] MEDS: Albuterol/Ipratropium 3.0-0.5 MG/3 ML Neb Soln NEB SCH ×2 (08:14→11:15)
[2019-08-29] MEDS: Sodium Chloride 0.9% 10 ML Syringe FLUSH PRN (10:41)
[2019-08-29] MEDS ORDERED: Levalbuterol HCl 1.25 MG/3 ML Neb NEB PRN (12:26)
--- NOTE | 2019-08-29 12:29 | PCM.PN ---
- General Info Date of Service: 08/29/19 Subjective Update: No acute events overnight. Everything seems to be fairly stable compared to yesterday but not dramatically improved. He can still hear wheezing. He still gets short of breath with activity but thinks this is a little better. No fevers. Cough is a little better today. Slept okay last night. Gets shaky after nebulizers. Appetite is little better. Respiratory culture did grow out pansensitive Pseudomonas. Functional Status: Reports: Pain Controlled, Tolerating Diet - Review of Systems General: Reports: Weakness. Denies: Fever Pulmonary: Reports: Shortness of Breath, Wheezing - Patient Data Vitals - Most Recent: Last Vital Signs Temp 36.2 C 08/29/19 10:00 Pulse 95 08/29/19 11:15 Resp 16 08/29/19 10:00 BP 110/62 08/29/19 10:00 Pulse Ox 95 08/29/19 11:15 Weight - Most Recent: 94.347 kg I&O - Last 24 Hours: Intake & Output 08/28/19 08/29/19 08/29/19 22:59 06:59 14:59 Intake Total 350 50 360 Balance 350 50 360 Lab Results Last 24 Hours: Laboratory Results - last 24 hr 08/29/19 08/29/19 Range/Units 05:20 05:20 WBC 22.3 H (4.5-11.0) K/uL RBC 5.19 (4.30-5.90) M/uL Hgb 13.9 (12.0-15.0) g/dL Hct 43.9 (40.0-54.0) % MCV 85 (80-98) fL MCH 27 (27-31) pg MCHC 32 (32-36) % Plt Count 233 (150-400) K/uL Sodium 140 (140-148) mmol/L Potassium 5.6 H (3.6-5.2) mmol/L Chloride 104 (100-108) mmol/L Carbon Dioxide 31 (21-32) mmol/L Anion Gap 10.6 (5.0-14.0) mmol/L BUN 26 H (7-18) mg/dL Creatinine 1.2 (0.8-1.3) mg/dL Est Cr Clr Drug Dosing 48.84 mL/min Estimated GFR (MDRD) 59 L (>60) Glucose 159 H (74-106) mg/dL Calcium 8.5 (8.5-10.1) mg/dL Lucas Results Last 24 Hours: Microbiology 08/27/19 11:17 Gram Stain - Final Sputum - Expectorated Respiratory Culture - Final Pseudomonas Aeruginosa 08/27/19 14:06 Aerobic Blood Culture - Preliminary Blood - Arm, Left NO GROWTH AFTER 1 DAY Anaerobic Blood Culture - Preliminary NO GROWTH AFTER 1 DAY 08/27/19 14:06 Aerobic Blood Culture - Preliminary Blood - Arm, Left NO GROWTH AFTER 1 DAY Anaerobic Blood Culture - Preliminary NO GROWTH AFTER 1 DAY Med Orders - Current: Current Medications Acetaminophen (Tylenol) 650 mg PO Q4H PRN PRN Reason: Pain (Mild 1-3)/fever Benzonatate (Tessalon Perles) 100 mg PO TID PRN PRN Reason: Cough Guaifenesin (Mucinex) 600 mg PO BID [facility] Last Admin: 08/29/19 08:01 Dose: 600 mg Documented by: Guaifenesin/Codeine Phosphate (Robitussin Ac) 10 ml PO Q4H PRN PRN Reason: Cough Ceftazidime 1 gm/ Sodium (Chloride) 50 mls @ 100 mls/hr IV Q8HR [facility] Last Admin: 08/29/19 05:26 Dose: 100 mls/hr Documented by: Lactobacillus Rhamnosus (Culturelle) 1 cap PO BID [facility] Last Admin: 08/29/19 08:01 Dose: 1 cap Documented by: Levothyroxine Sodium 100 mcg/Levothyroxine Sodium 25 mcg/Levothyroxine Sodium 50 mcg 175 mcg PO ACBREAKFAST [facility] Last Admin: 08/29/19 07:52 Dose: 175 mcg Documented by: Lorazepam (Ativan) 0.5 mg IVPUSH Q4H PRN PRN Reason: Nausea/Vomiting Lorazepam (Ativan) 0.5 mg PO Q4H PRN PRN Reason: Anxiety Melatonin (Melatonin) 9 mg PO BEDTIME PRN PRN Reason: Sleep Moxifloxacin HCl (Vigamox 0.5% Ophth Soln) 0 ml EYELF QID [facility] Last Admin: 08/29/19 10:34 Dose: 1 drop Documented by: Advair 250-50 Diskus (Ptom) 1 puff INH BIDRT [facility] Last Admin: 08/29/19 07:57 Dose: Not Given Documented by: Ondansetron HCl (Zofran Odt) 4 mg PO Q6H PRN PRN Reason: Nausea able to take PO Ondansetron HCl (Zofran) 4 mg IV Q6H PRN PRN Reason: Nausea/Vomiting Senna/Docusate Sodium (Senna Plus) 1 tab PO BID PRN PRN Reason: Constipation Sodium Chloride (Saline Flush) 10 ml FLUSH ASDIRECTED PRN PRN Reason: Keep Vein Open Last Admin: 08/29/19 10:41 Dose: 10 ml Documented by: Discontinued Medications Albuterol (Proventil Neb Soln) 2.5 mg NEB ONETIME ONE Stop: 08/27/19 11:12 Last Admin: 08/27/19 11:15 Dose: 2.5 mg Documented by: Albuterol (Proventil Neb Soln) Confirm Administered Dose 2.5 mg .ROUTE .STK-MED ONE Stop: 08/27/19 11:14 Last Admin: 08/27/19 11:20 Dose: Not Given Documented by: Albuterol (Proventil Neb Soln) 2.5 mg NEB Q2H PRN PRN Reason: Shortness Of Breath/wheezing Albuterol/Ipratropium (Duoneb 3.0-0.5 Mg/3 Ml) 3 ml NEB ONETIME ONE Stop: 08/27/19 10:45 Last Admin: 08/27/19 10:58 Dose: 3 ml Documented by: Albuterol/Ipratropium (Duoneb 3.0-0.5 Mg/3 Ml) 3 ml NEB QIDRT [facility] Last Admin: 08/29/19 11:15 Dose: 3 ml Documented by: Budesonide (Pulmicort) 0.5 mg NEB ONETIME ONE Stop: 08/27/19 11:24 Last Admin: 08/27/19 11:24 Dose: 0.5 mg Documented by: Budesonide (Pulmicort) Confirm Administered Dose 0.5 mg .ROUTE .STK-MED ONE Stop: 08/27/19 11:23 Last Admin: 08/27/19 11:24 Dose: Not Given Documented by: Sodium Chloride (Normal Saline) 75 mls @ 3 mls/sec IV ONETIME ONE Stop: 08/27/19 12:40 Last Admin: 08/27/19 12:49 Dose: 3 mls/sec Documented by: Ceftriaxone Sodium 2 gm/ (Sodium Chloride) 50 mls @ 100 mls/hr IV Q24H [facility] Last Admin: 08/27/19 15:02 Dose: 100 mls/hr Documented by: Azithromycin 500 mg/ Sodium (Chloride) 250 mls @ 250 mls/hr IV Q24H [facility] Last Admin: 08/28/19 14:45 Dose: 250 mls/hr Documented by: Iopamidol (Isovue-300 (61%)) 100 ml IV . DIRECTED PRN PRN Reason: RADIOLOGY EXAM Last Admin: 08/27/19 12:49 Dose: 100 ml Documented by: Lorazepam (Ativan) 0.5 mg PO ONETIME ONE Stop: 08/27/19 12:09 Last Admin: 08/27/19 12:15 Dose: 0.5 mg Documented by: Methylprednisolone Sodium Succinate (Solu-Medrol) 125 mg IVPUSH ONETIME ONE Stop: 08/27/19 11:12 Last Admin: 08/27/19 11:18 Dose: 125 mg Documented by: Methylprednisolone Sodium Succinate (Solu-Medrol) 62.5 mg IVPUSH Q8H [facility] Last Admin: 08/29/19 10:32 Dose: 62.5 mg Documented by: Sodium Chloride (Saline Flush) 10 ml FLUSH ONETIME PRN PRN Reason: PER RADIOLOGY PROTOCOL Last Admin: 08/27/19 12:49 Dose: 10 ml Documented by: - Exam Quality Assessment: Supplemental Oxygen General: Alert, Oriented, Cooperative, No Acute Distress Lungs: Wheezing (diffuse exp ). No: Normal Respiratory Effort (increased work of breathing ), Rhonchi Cardiovascular: Regular Rate, Regular Rhythm GI/Abdominal Exam: Soft, No Distention Extremities: No Pedal Edema. No: Increased Warmth Skin: Warm, Dry Psy/Mental Status: Alert, Normal Affect Sepsis Event Note - Evaluation Sepsis Screening Result: Severe Sepsis Risk - Focused Exam Vital Signs: Vital Signs Temp Pulse Resp BP Pulse Ox Pulse Ox 08/29/19 11:15 95 95 08/29/19 10:00 36.2 C 109 H 16 110/62 97 08/29/19 08:16 104 H 97 08/29/19 08:00 95 08/29/19 06:00 35.4 C L 101 H 18 112/62 92 L 08/29/19 02:51 35.2 C L 97 20 108/54 L 91 L Date Exam was Performed: 08/29/19 Time Exam was Performed: 13:21 - Problem List & Annotations (1) CAP (community acquired pneumonia) SNOMED Code(s): 388171264 Code(s): J18.9 - PNEUMONIA, UNSPECIFIED ORGANISM Status: Resolved Current Visit: No Qualifiers: Lung location: lower lobe of lung (2) COPD exacerbation SNOMED Code(s): 122381184 Code(s): J44.1 - CHRONIC OBSTRUCTIVE PULMONARY DISEASE W (ACUTE) EXACERBATION Status: Acute Current Visit: Yes (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 SNOMED Code(s): 86474559 Code(s): C34.90 - MALIGNANT NEOPLASM OF UNSP PART OF UNSP BRONCHUS OR LUNG; C79.31 - SECONDARY MALIGNANT NEOPLASM OF BRAIN Status: Chronic Current Visit: Yes - Problem List Review Problem List Initiated/Reviewed/Updated: Yes - My Orders Last 24 Hours: My Active Orders 08/28/19 14:00 cefTAZidime Pentahydrate [Fortaz] 1 gm Sodium Chloride 0.9% [Normal Saline] 50 ml IV Q8HR 08/28/19 21:00 Fluticasone Propion/Salmeterol [Advair 250-50 Diskus] 1 puff INH BIDRT 08/29/19 12:26 RT Aerosol Therapy [RC] ASDIRECTED levalbuterol HCL [Xopenex] 1.25 mg NEB Q2H PRN 08/29/19 15:00 levalbuterol HCL [Xopenex] 1.25 mg NEB QIDRT 08/29/19 16:30 predniSONE 20 mg PO BIDAC 08/30/19 05:00 BASIC METABOLIC PANEL,BMP [CHEM] Timed CBC W/O DIFF,HEMOGRAM [HEME] Timed (1) - Plan Plan:: ASSESSMENT AND PLAN - Bilateral lower lobe pneumonia-this has failed outpatient therapy with several different courses of antibiotics. Complicated by an exacerbation of his COPD. Still significant wheezing. Culture growing Pseudomonas. Still fairly symptomatic with activity and requiring supplemental oxygen. -discontinue azithromycin -Continue ceftaz edema, anticipate transition to fluoroquinolone tomorrow -transition to prednisone today -Scheduled and as needed nebulizers but changed to Xopenex -Supplement oxygen as needed -Symptomatic management of cough -Follow-up blood cultures Acute exacerbation of COPD-somewhat better today but still quite compromised. He now has hypoxia requiring supplemental oxygen administration. -Transition to prednisone -Additional management as above Stage IV non-small cell lung cancer-so far he has been responding to chemotherapy with smaller lung mass noted and stable liver lesions. -Outpatient oncology follow-up Maintenance issues - - DVT prophylaxis -mechanical - GI prophylaxis -not indicated - Nutrition -regular Disposition -I would anticipate discharge home after the hospital stay Primary care physician -Darrick Keith M.D.
[2019-08-29] MEDS: Levalbuterol HCl 1.25 MG/3 ML Neb NEB SCH ×2 (14:50→20:21)
[2019-08-29] MEDS: predniSONE 20 MG Tab PO SCH (16:23)
[2019-08-30] MEDS: Moxifloxacin 0.5% Ophth Soln 3 ML Bottle EYELF SCH ×4 (05:51→21:08)
[2019-08-30] MEDS: Levalbuterol HCl 1.25 MG/3 ML Neb NEB SCH ×4 (07:30→21:14)
[2019-08-30] MEDS: ADVAIR INH SCH ×2 (07:31→21:08)
[2019-08-30] MEDS: predniSONE 20 MG Tab PO SCH ×2 (08:12→16:25)
[2019-08-30] MEDS: Levothyroxine 100 MCG, Levothyroxine 25 MCG, Levothyroxine 50 MCG PO SCH ×3 (08:12)
[2019-08-30] MEDS: Lactobacillus Rhamnosus GG (Probiotic) Cap PO SCH ×2 (08:12→21:06)
[2019-08-30] MEDS: guaiFENesin 600 MG Tab.ER PO SCH ×2 (08:12→21:07)
--- NOTE | 2019-08-30 11:20 | PCM.PN ---
- General Info Date of Service: 08/30/19 Subjective Update: There were no acute events overnight. He was able to walk in the hallway for a while. He reports less shortness of breath today. No complaints of chest pain. Cough is getting better. No fevers. White blood cell count slightly better. Still requiring supplemental oxygen intermittently. No new culture results. Functional Status: Reports: Pain Controlled, Tolerating Diet - Review of Systems General: Denies: Fever Pulmonary: Reports: Shortness of Breath, Wheezing - Patient Data Vitals - Most Recent: Last Vital Signs Temp 35.7 C L 08/30/19 07:24 Pulse 96 08/30/19 10:34 Resp 16 08/30/19 07:24 BP 114/66 08/30/19 07:24 Pulse Ox 91 L 08/30/19 07:24 Weight - Most Recent: 94.347 kg I&O - Last 24 Hours: Intake & Output 08/29/19 08/30/19 08/30/19 22:59 06:59 14:59 Intake Total 600 600 120 Balance 600 600 120 Lab Results Last 24 Hours: Laboratory Results - last 24 hr 08/30/19 08/30/19 Range/Units 04:17 04:17 WBC 20.4 H (4.5-11.0) K/uL RBC 5.31 (4.30-5.90) M/uL Hgb 14.2 (12.0-15.0) g/dL Hct 44.9 (40.0-54.0) % MCV 85 (80-98) fL MCH 27 (27-31) pg MCHC 32 (32-36) % Plt Count 245 (150-400) K/uL Sodium 141 (140-148) mmol/L Potassium 5.4 H (3.6-5.2) mmol/L Chloride 105 (100-108) mmol/L Carbon Dioxide 33 H (21-32) mmol/L Anion Gap 8.4 (5.0-14.0) mmol/L BUN 26 H (7-18) mg/dL Creatinine 1.1 (0.8-1.3) mg/dL Est Cr Clr Drug Dosing 53.28 mL/min Estimated GFR (MDRD) > 60 (>60) Glucose 136 H (74-106) mg/dL Calcium 8.3 L (8.5-10.1) mg/dL Lucas Results Last 24 Hours: Microbiology 08/27/19 14:06 Aerobic Blood Culture - Preliminary Blood - Arm, Left NO GROWTH AFTER 2 DAYS Anaerobic Blood Culture - Preliminary NO GROWTH AFTER 2 DAYS 08/27/19 14:06 Aerobic Blood Culture - Preliminary Blood - Arm, Left NO GROWTH AFTER 2 DAYS Anaerobic Blood Culture - Preliminary NO GROWTH AFTER 2 DAYS 08/27/19 11:17 Gram Stain - Final Sputum - Expectorated Respiratory Culture - Final Pseudomonas Aeruginosa Med Orders - Current: Current Medications Acetaminophen (Tylenol) 650 mg PO Q4H PRN PRN Reason: Pain (Mild 1-3)/fever Benzonatate (Tessalon Perles) 100 mg PO TID PRN PRN Reason: Cough Guaifenesin (Mucinex) 600 mg PO BID [facility] Last Admin: 08/30/19 08:12 Dose: 600 mg Documented by: Guaifenesin/Codeine Phosphate (Robitussin Ac) 10 ml PO Q4H PRN PRN Reason: Cough Ceftazidime 1 gm/ Sodium (Chloride) 50 mls @ 100 mls/hr IV Q8HR [facility] Last Admin: 08/30/19 05:51 Dose: 100 mls/hr Documented by: Lactobacillus Rhamnosus (Culturelle) 1 cap PO BID [facility] Last Admin: 08/30/19 08:12 Dose: 1 cap Documented by: Levalbuterol HCl (Xopenex) 1.25 mg NEB QIDRT [facility] Last Admin: 08/30/19 10:34 Dose: 1.25 mg Documented by: Levalbuterol HCl (Xopenex) 1.25 mg NEB Q2H PRN PRN Reason: shortness of breath/wheezing Levothyroxine Sodium 100 mcg/Levothyroxine Sodium 25 mcg/Levothyroxine Sodium 50 mcg 175 mcg PO ACBREAKFAST [facility] Last Admin: 08/30/19 08:12 Dose: 175 mcg Documented by: Lorazepam (Ativan) 0.5 mg IVPUSH Q4H PRN PRN Reason: Nausea/Vomiting Lorazepam (Ativan) 0.5 mg PO Q4H PRN PRN Reason: Anxiety Melatonin (Melatonin) 9 mg PO BEDTIME PRN PRN Reason: Sleep Moxifloxacin HCl (Vigamox 0.5% Ophth Soln) 0 ml EYELF QID [facility] Last Admin: 08/30/19 10:57 Dose: 1 drop Documented by: Advair 250-50 Diskus (Ptom) 1 puff INH BIDRT [facility] Last Admin: 08/30/19 07:31 Dose: Not Given Documented by: Ondansetron HCl (Zofran Odt) 4 mg PO Q6H PRN PRN Reason: Nausea able to take PO Ondansetron HCl (Zofran) 4 mg IV Q6H PRN PRN Reason: Nausea/Vomiting Prednisone (Prednisone) 20 mg PO BIDAC [facility] Last Admin: 08/30/19 08:12 Dose: 20 mg Documented by: Senna/Docusate Sodium (Senna Plus) 1 tab PO BID PRN PRN Reason: Constipation Sodium Chloride (Saline Flush) 10 ml FLUSH ASDIRECTED PRN PRN Reason: Keep Vein Open Last Admin: 08/29/19 10:41 Dose: 10 ml Documented by: Discontinued Medications Albuterol (Proventil Neb Soln) 2.5 mg NEB ONETIME ONE Stop: 08/27/19 11:12 Last Admin: 08/27/19 11:15 Dose: 2.5 mg Documented by: Albuterol (Proventil Neb Soln) Confirm Administered Dose 2.5 mg .ROUTE .STK-MED ONE Stop: 08/27/19 11:14 Last Admin: 08/27/19 11:20 Dose: Not Given Documented by: Albuterol (Proventil Neb Soln) 2.5 mg NEB Q2H PRN PRN Reason: Shortness Of Breath/wheezing Albuterol/Ipratropium (Duoneb 3.0-0.5 Mg/3 Ml) 3 ml NEB ONETIME ONE Stop: 08/27/19 10:45 Last Admin: 08/27/19 10:58 Dose: 3 ml Documented by: Albuterol/Ipratropium (Duoneb 3.0-0.5 Mg/3 Ml) 3 ml NEB QIDRT [facility] Last Admin: 08/29/19 11:15 Dose: 3 ml Documented by: Budesonide (Pulmicort) 0.5 mg NEB ONETIME ONE Stop: 08/27/19 11:24 Last Admin: 08/27/19 11:24 Dose: 0.5 mg Documented by: Budesonide (Pulmicort) Confirm Administered Dose 0.5 mg .ROUTE .STK-MED ONE Stop: 08/27/19 11:23 Last Admin: 08/27/19 11:24 Dose: Not Given Documented by: Sodium Chloride (Normal Saline) 75 mls @ 3 mls/sec IV ONETIME ONE Stop: 08/27/19 12:40 Last Admin: 08/27/19 12:49 Dose: 3 mls/sec Documented by: Ceftriaxone Sodium 2 gm/ (Sodium Chloride) 50 mls @ 100 mls/hr IV Q24H [facility] Last Admin: 08/27/19 15:02 Dose: 100 mls/hr Documented by: Azithromycin 500 mg/ Sodium (Chloride) 250 mls @ 250 mls/hr IV Q24H [facility] Last Admin: 08/28/19 14:45 Dose: 250 mls/hr Documented by: Iopamidol (Isovue-300 (61%)) 100 ml IV . DIRECTED PRN PRN Reason: RADIOLOGY EXAM Last Admin: 08/27/19 12:49 Dose: 100 ml Documented by: Lorazepam (Ativan) 0.5 mg PO ONETIME ONE Stop: 08/27/19 12:09 Last Admin: 08/27/19 12:15 Dose: 0.5 mg Documented by: Methylprednisolone Sodium Succinate (Solu-Medrol) 125 mg IVPUSH ONETIME ONE Stop: 08/27/19 11:12 Last Admin: 08/27/19 11:18 Dose: 125 mg Documented by: Methylprednisolone Sodium Succinate (Solu-Medrol) 62.5 mg IVPUSH Q8H [facility] Last Admin: 08/29/19 10:32 Dose: 62.5 mg Documented by: Sodium Chloride (Saline Flush) 10 ml FLUSH ONETIME PRN PRN Reason: PER RADIOLOGY PROTOCOL Last Admin: 08/27/19 12:49 Dose: 10 ml Documented by: - Exam Quality Assessment: Supplemental Oxygen General: Alert, Oriented, Cooperative, No Acute Distress Lungs: Normal Respiratory Effort, Wheezing (diffuse exp) Cardiovascular: Regular Rate, Regular Rhythm GI/Abdominal Exam: Soft, No Distention Extremities: No Pedal Edema. No: Increased Warmth Skin: Warm, Dry Psy/Mental Status: Alert, Normal Affect Sepsis Event Note - Evaluation Sepsis Screening Result: Sepsis Risk - Focused Exam Vital Signs: Vital Signs Temp Pulse Pulse Resp BP BP Pulse Ox 08/30/19 10:34 96 08/30/19 07:24 35.7 C L 99 16 114/66 91 L 08/30/19 02:32 35.3 C L 89 18 112/64 98 Date Exam was Performed: 08/30/19 Time Exam was Performed: 13:16 - Problem List & Annotations (1) CAP (community acquired pneumonia) SNOMED Code(s): 353043873 Code(s): J18.9 - PNEUMONIA, UNSPECIFIED ORGANISM Status: Resolved Current Visit: No Qualifiers: Lung location: lower lobe of lung (2) COPD exacerbation SNOMED Code(s): 998937402 Code(s): J44.1 - CHRONIC OBSTRUCTIVE PULMONARY DISEASE W (ACUTE) EXACERBATION Status: Acute Current Visit: Yes (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 SNOMED Code(s): 41850932 Code(s): C34.90 - MALIGNANT NEOPLASM OF UNSP PART OF UNSP BRONCHUS OR LUNG; C79.31 - SECONDARY MALIGNANT NEOPLASM OF BRAIN Status: Chronic Current V isit: Yes - Problem List Review Problem List Initiated/Reviewed/Updated: Yes - My Orders Last 24 Hours: My Active Orders 08/29/19 12:26 levalbuterol HCL [Xopenex] 1.25 mg NEB Q2H PRN 08/29/19 15:00 levalbuterol HCL [Xopenex] 1.25 mg NEB QIDRT 08/29/19 16:30 predniSONE 20 mg PO BIDAC 08/30/19 11:30 levoFLOXacin [Levaquin] 750 mg PO Q24H 08/31/19 05:00 BASIC METABOLIC PANEL,BMP [CHEM] Timed CBC W/O DIFF,HEMOGRAM [HEME] Timed (1) - Plan Plan:: ASSESSMENT AND PLAN - Bilateral lower lobe pneumonia-this has failed outpatient therapy with several different courses of antibiotics. Complicated by an exacerbation of his COPD. Wheezing improving. Culture positive for Pseudomonas -Discontinue ceftaz edema and transition to levofloxacin -Continue prednisone -Scheduled and as needed nebulizers but changed to Xopenex -Supplement oxygen as needed -Symptomatic management of cough -Follow-up blood cultures Acute exacerbation of COPD-slowly getting better with less wheezing and improved air movement. -Continue prednisone -Additional management as above Stage IV non-small cell lung cancer-so far he has been responding to chemotherapy with smaller lung mass noted and stable liver lesions. -Outpatient oncology follow-up Maintenance issues - - DVT prophylaxis -mechanical - GI prophylaxis -not indicated - Nutrition -regular Disposition -I would anticipate discharge home with home care after the hospital stay Primary care physician -Darrick Keith M.D.
[2019-08-30] MEDS: Levofloxacin 250 MG Tab PO SCH (11:36)
[2019-08-31] MEDS: Moxifloxacin 0.5% Ophth Soln 3 ML Bottle EYELF SCH ×2 (05:59→11:39)
[2019-08-31] MEDS: Levalbuterol HCl 1.25 MG/3 ML Neb NEB SCH ×3 (07:59→14:51)
[2019-08-31] MEDS: ADVAIR INH SCH (08:04)
[2019-08-31] MEDS: Lactobacillus Rhamnosus GG (Probiotic) Cap PO SCH (08:53)
[2019-08-31] MEDS: guaiFENesin 600 MG Tab.ER PO SCH (08:53)
[2019-08-31] MEDS: predniSONE 20 MG Tab PO SCH (08:53)
[2019-08-31] MEDS: Levothyroxine 100 MCG, Levothyroxine 25 MCG, Levothyroxine 50 MCG PO SCH ×3 (08:53)
[2019-08-31 11:32] VITALS: BP 94/51
[2019-08-31] MEDS: Levofloxacin 250 MG Tab PO SCH (11:39)
--- NOTE | 2019-08-31 14:08 | PCM.DCSUM1 ---
Discharge Summary - Hospital Course Brief History: 74-year-old male with history of oxygen dependent COPD and stage IV non-small cell lung cancer who presented with persistent cough, shortness of breath and weakness despite outpatient antibiotics. He was admitted for management of a bilateral pneumonia that has failed outpatient therapy with 3 different antibiotics as well as an exacerbation of his COPD. Diagnosis: Stroke: No - Discharge Data Discharge Date: 08/31/19 Discharge Disposition: Home, W Home Health Agency 06 Condition: Fair - Referral to Home Health Date of Face to Face Encounter: 08/31/19 Reason for Homebound Status: Weakness due to acute medical condition as well as dyspnea on exertion Primary Care Physician: Darrick Berrios NP Skilled Need: Nursing to monitor respiratory status after acute respiratory infection. Physical therapy to improve strength and endurance - Discharge Diagnosis/Problem(s) (1) Pneumonia of both lungs due to Pseudomonas species SNOMED Code(s): 86350389, 316118633 ICD Code: J15.1 - PNEUMONIA DUE TO PSEUDOMONAS Status: Acute Qualifiers: Lung location: lower lobe of lung Qualified Code(s): J15.1 - Pneumonia due to Pseudomonas (2) Acute and chronic respiratory failure with hypoxia SNOMED Code(s): 85894092, 401074160 ICD Code: J96.21 - ACUTE AND CHRONIC RESPIRATORY FAILURE WITH HYPOXIA Status: Acute (3) COPD exacerbation SNOMED Code(s): 891105569 ICD Code: J44.1 - CHRONIC OBSTRUCTIVE PULMONARY DISEASE W (ACUTE) EXACERBATION Status: Acute (4) Lung cancer metastatic to brain SNOMED Code(s): 42378465 ICD Code: C34.90 - MALIGNANT NEOPLASM OF UNSP PART OF UNSP BRONCHUS OR LUNG; C79.31 - SECONDARY MALIGNANT NEOPLASM OF BRAIN Status: Chronic - Patient Summary/Data Hospital Course: Art presented to the emergency room with persistent cough, shortness of breath and weakness despite several rounds of outpatient antibiotics and steroids. Work-up in the emergency room was suggestive of a bilateral lower lung pneumonia. He had significant wheezing suggestive of a COPD exacerbation complicating pneumonia. Initially he was not hypoxic. Given the fact that he had failed outpatient therapy we felt that it was prudent to admit him to the hospital for IV antibiotics and to collect cultures. Shortly after admission he did develop some hypoxia and required 2 L of supplemental oxygen. Initially we started him on azithromycin and ceftriaxone as well as some IV steroids. We collected a sputum culture that showed gram-negative rods and with some concern for Pseudomonas we discontinued the above antibiotics and changed him to ceftazidime. IV steroids were continued for the first 2 days before he was transitioned to oral steroids. He has had slow but steady improvement in his respiratory status with less and less wheezing and more and more air movement throughout the course of the hospital stay. His respiratory culture did return positive for Pseudomonas which was pansensitive. We were able to transition him to oral levofloxacin which she seems to be tolerating well so far. There was some concern that he may not have tolerated this as an outpatient but after 2 doses he is doing well. His wheezing has improved dramatically but not quite resolved. He has been able to walk up and down the halls and feels well enough to be home at this time. He does have home oxygen available. Plan is for a prednisone taper over the next 8 days with 20 mg for 4 days and 10 mg for 4 days. He will be on levofloxacin for 4 more days to complete a total of 8 days of antibiotic therapy targeted at Pseudomonas. He was interested in home care to help ease his transition home and this will be set up. He will have early follow-up as well. - Patient Instructions Diet: Heart Healthy Diet Activity: As Tolerated Showering/Bathing: May Shower Notify Provider of: Fever, Increased Pain Other/Special Instructions: 1. You were in the hospital for management of a bilateral lower lung pneumonia caused by a bacteria called Pseudomonas. Your condition has been improving with antibiotic therapy and steroids. I do recommend ongoing antibiotic therapy with levofloxacin as outlined below. You should taper yourself off of prednisone because of recent high-dose use. The taper schedule as outlined below as well. You should try to increase your activity as tolerated but expect that it will take days and probably a couple of weeks to get back to your normal activity level. To help with your lower extremity swelling you may use the furosemide daily to help reduce swelling. Elevating your legs above the level of your pelvis can help to reduce swelling as well. --levofloxacin 750 mg daily at NOON for four doses. --prednisone 20 mg daily in the morning for 4 days then 10 mg daily in the morning for 4 days. START Monday morning. --Robitussin with codeine 10 mL as needed for cough. 2. Continue your other home medications as previously prescribed. 3. Follow-up with your primary care as scheduled - Discharge Plan *PRESCRIPTION DRUG MONITORING PROGRAM REVIEWED*: Not Applicable *COPY OF PRESCRIPTION DRUG MONITORING REPORT IN PATIENT JASON: Not Applicable Prescriptions/Med Rec: Levofloxacin 750 mg PO WITHLUNCH #4 tablet predniSONE [Prednisone] 10 mg PO ASDIRECTED #12 tablet Codeine/guaiFENesin [Robitussin AC] 10 ml PO Q4H PRN #236 ml PRN Reason: Cough Home Medications: Home Meds Furosemide [Lasix] 20 mg PO ASDIRECTED 04/26/17 [History] Levothyroxine Sodium [Synthroid] 175 mcg PO DAILY 04/26/17 [History] Ipratropium [Atrovent] 0.5 mg INH Q6H PRN #30 neb 06/03/17 [Rx] Albuterol Sulfate [Proair Hfa] 2 puff INH QID PRN 06/19/18 [History] Fluticasone Propion/Salmeterol [Advair 250-50 Diskus] 1 puff INH BID 06/19/18 [History] Moxifloxacin HCl [Moxifloxacin] 1 drop EYELF QID 06/19/18 [History] Triamcinolone Acetonide [Triamcinolone Acetonide 0.1% Oint] 1 applic TOP DAILY 06/19/18 [History] dexAMETHasone sodium phosphate [Dexonto] 1 drop EYELF QID 06/19/18 [History] guaiFENesin [Guaifenesin ER] 1,200 mg PO BID 06/19/18 [History] Albuterol/Ipratropium [DuoNeb 3.0-0.5 MG/3 ML] 1 inh INH Q4H PRN 07/03/18 [History] Clobetasol [Temovate 0.05% Oint] 15 gm TOP BID 07/03/18 [History] Codeine/guaiFENesin [Robitussin AC] 10 ml PO Q4H PRN #236 ml 08/31/19 [Rx] Levofloxacin 750 mg PO WITHLUNCH #4 tablet 08/31/19 [Rx] predniSONE [Prednisone] 10 mg PO ASDIRECTED #12 tablet 08/31/19 [Rx] Oxygen Therapy Mode: Nasal Cannula Oxygen Flow Rate (L/min): 2 Patient Handouts: Levofloxacin tablets, Community-Acquired Pneumonia, Adult Referrals: Darrick Berrios NP [Primary Care Provider] - 09/10/19 1:00 pm - Discharge Summary/Plan Comment DC Time >30 min.: Yes (35-coordinating home health care) - Patient Data Vitals - Most Recent: Last Vital Signs Temp 35.9 C L 08/31/19 11:29 Pulse 95 08/31/19 11:29 Resp 20 08/31/19 11:29 BP 94/51 L 08/31/19 11:29 Pulse Ox 96 08/31/19 11:29 Weight - Most Recent: 94.347 kg I&O - Last 24 hours: Intake & Output 08/30/19 08/31/19 08/31/19 22:59 06:59 14:59 Intake Total 236 500 240 Balance 236 500 240 Lab Results - Last 24 hrs: Laboratory Results - last 24 hr 08/31/19 08/31/19 Range/Units 04:40 04:40 WBC 18.7 H (4.5-11.0) K/uL RBC 5.45 (4.30-5.90) M/uL Hgb 14.4 (12.0-15.0) g/dL Hct 46.2 (40.0-54.0) % MCV 85 (80-98) fL MCH 26 L (27-31) pg MCHC 31 L (32-36) % Plt Count 215 (150-400) K/uL Sodium 141 (140-148) mmol/L Potassium 5.1 (3.6-5.2) mmol/L Chloride 105 (100-108) mmol/L Carbon Dioxide 33 H (21-32) mmol/L Anion Gap 8.1 (5.0-14.0) mmol/L BUN 24 H (7-18) mg/dL Creatinine 1.2 (0.8-1.3) mg/dL Est Cr Clr Drug Dosing 48.84 mL/min Estimated GFR (MDRD) 59 L (>60) Glucose 110 H (74-106) mg/dL Calcium 8.3 L (8.5-10.1) mg/dL DIMAS Results - Last 24 hrs: Microbiology 08/27/19 14:06 Aerobic Blood Culture - Preliminary Blood - Arm, Left NO GROWTH AFTER 4 DAYS Anaerobic Blood Culture - Preliminary NO GROWTH AFTER 4 DAYS 08/27/19 14:06 Aerobic Blood Culture - Preliminary Blood - Arm, Left NO GROWTH AFTER 4 DAYS Anaerobic Blood Culture - Preliminary NO GROWTH AFTER 4 DAYS Med Orders - Current: Current Medications Acetaminophen (Tylenol) 650 mg PO Q4H PRN PRN Reason: Pain (Mild 1-3)/fever Benzonatate (Tessalon Perles) 100 mg PO TID PRN PRN Reason: Cough Guaifenesin (Mucinex) 600 mg PO BID [facility] Last Admin: 08/31/19 08:53 Dose: 600 mg Documented by: Guaifenesin/Codeine Phosphate (Robitussin Ac) 10 ml PO Q4H PRN PRN Reason: Cough Lactobacillus Rhamnosus (Culturelle) 1 cap PO BID [facility] Last Admin: 08/31/19 08:53 Dose: 1 cap Documented by: Levalbuterol HCl (Xopenex) 1.25 mg NEB QIDRT [facility] Last Admin: 08/31/19 10:51 Dose: 1.25 mg Documented by: Levalbuterol HCl (Xopenex) 1.25 mg NEB Q2H PRN PRN Reason: shortness of breath/wheezing Levofloxacin (Levaquin) 750 mg PO Q24H [facility] Last Admin: 08/31/19 11:39 Dose: 750 mg Documented by: Levothyroxine Sodium 100 mcg/Levothyroxine Sodium 25 mcg/Levothyroxine Sodium 50 mcg 175 mcg PO ACBREAKFAST [facility] Last Admin: 08/31/19 08:53 Dose: 175 mcg Documented by: Lorazepam (Ativan) 0.5 mg IVPUSH Q4H PRN PRN Reason: Nausea/Vomiting Lorazepam (Ativan) 0.5 mg PO Q4H PRN PRN Reason: Anxiety Melatonin (Melatonin) 9 mg PO BEDTIME PRN PRN Reason: Sleep Moxifloxacin HCl (Vigamox 0.5% Ophth Soln) 0 ml EYELF QID [facility] Last Admin: 08/31/19 11:39 Dose: 1 drop Documented by: Advair 250-50 Diskus (Ptom) 1 puff INH BIDRT [facility] Last Admin: 08/31/19 08:04 Dose: Not Given Documented by: Ondansetron HCl (Zofran Odt) 4 mg PO Q6H PRN PRN Reason: Nausea able to take PO Ondansetron HCl (Zofran) 4 mg IV Q6H PRN PRN Reason: Nausea/Vomiting Prednisone (Prednisone) 20 mg PO BIDAC [facility] Last Admin: 08/31/19 08:53 Dose: 20 mg Documented by: Senna/Docusate Sodium (Senna Plus) 1 tab PO BID PRN PRN Reason: Constipation Sodium Chloride (Saline Flush) 10 ml FLUSH ASDIRECTED PRN PRN Reason: Keep Vein Open Last Admin: 08/29/19 10:41 Dose: 10 ml Documented by: Discontinued Medications Albuterol (Proventil Neb Soln) 2.5 mg NEB ONETIME ONE Stop: 08/27/19 11:12 Last Admin: 08/27/19 11:15 Dose: 2.5 mg Documented by: Albuterol (Proventil Neb Soln) Confirm Administered Dose 2.5 mg .ROUTE .STK-MED ONE Stop: 08/27/19 11:14 Last Admin: 08/27/19 11:20 Dose: Not Given Documented by: Albuterol (Proventil Neb Soln) 2.5 mg NEB Q2H PRN PRN Reason: Shortness Of Breath/wheezing Albuterol/Ipratropium (Duoneb 3.0-0.5 Mg/3 Ml) 3 ml NEB ONETIME ONE Stop: 08/27/19 10:45 Last Admin: 08/27/19 10:58 Dose: 3 ml Documented by: Albuterol/Ipratropium (Duoneb 3.0-0.5 Mg/3 Ml) 3 ml NEB QIDRT [facility] Last Admin: 08/29/19 11:15 Dose: 3 ml Documented by: Budesonide (Pulmicort) 0.5 mg NEB ONETIME ONE Stop: 08/27/19 11:24 Last Admin: 08/27/19 11:24 Dose: 0.5 mg Documented by: Budesonide (Pulmicort) Confirm Administered Dose 0.5 mg .ROUTE .STK-MED ONE Stop: 08/27/19 11:23 Last Admin: 08/27/19 11:24 Dose: Not Given Documented by: Sodium Chloride (Normal Saline) 75 mls @ 3 mls/sec IV ONETIME ONE Stop: 08/27/19 12:40 Last Admin: 08/27/19 12:49 Dose: 3 mls/sec Documented by: Ceftriaxone Sodium 2 gm/ (Sodium Chloride) 50 mls @ 100 mls/hr IV Q24H [facility] Last Admin: 08/27/19 15:02 Dose: 100 mls/hr Documented by: Azithromycin 500 mg/ Sodium (Chloride) 250 mls @ 250 mls/hr IV Q24H [facility] Last Admin: 08/28/19 14:45 Dose: 250 mls/hr Documented by: Ceftazidime 1 gm/ Sodium (Chloride) 50 mls @ 100 mls/hr IV Q8HR [facility] Last Admin: 08/30/19 05:51 Dose: 100 mls/hr Documented by: Iopamidol (Isovue-300 (61%)) 100 ml IV . DIRECTED PRN PRN Reason: RADIOLOGY EXAM Last Admin: 08/27/19 12:49 Dose: 100 ml Documented by: Lorazepam (Ativan) 0.5 mg PO ONETIME ONE Stop: 08/27/19 12:09 Last Admin: 08/27/19 12:15 Dose: 0.5 mg Documented by: Methylprednisolone Sodium Succinate (Solu-Medrol) 125 mg IVPUSH ONETIME ONE Stop: 08/27/19 11:12 Last Admin: 08/27/19 11:18 Dose: 125 mg Documented by: Methylprednisolone Sodium Succinate (Solu-Medrol) 62.5 mg IVPUSH Q8H [facility] Last Admin: 08/29/19 10:32 Dose: 62.5 mg Documented by: Sodium Chloride (Saline Flush) 10 ml FLUSH ONETIME PRN PRN Reason: PER RADIOLOGY PROTOCOL Last Admin: 08/27/19 12:49 Dose: 10 ml Documented by:
[2019-08-31 14:51] VITALS: PULSE 90
== END 2019-08-31 15:17 | disposition home health service (06) | DRG 177 ==
LOC: JP.ED 10:30 → JP.ICU 14:05 → JP.MS 08-28 19:00
PROVIDERS: ADMIT Internal Medicine; ATTEND Internal Medicine
DX: J15.1 Pneumonia due to Pseudomonas (principal); J96.21 Acute and chronic respiratory failure with hypoxia; J44.0 Chronic obstructive pulmonary disease with (acute) lower respiratory infection; J44.1 Chronic obstructive pulmonary disease with (acute) exacerbation; Z87.01 Personal history of pneumonia (recurrent); C34.90 Malignant neoplasm of unspecified part of unspecified bronchus or lung; H54.7 Unspecified visual loss; H91.93 Unspecified hearing loss, bilateral; G89.29 Other chronic pain; M54.9 Dorsalgia, unspecified; C79.31 Secondary malignant neoplasm of brain; Z85.05 Personal history of malignant neoplasm of liver; Z85.72 Personal history of non-Hodgkin lymphomas; Z98.49 Cataract extraction status, unspecified eye; Z98.52 Vasectomy status; E03.9 Hypothyroidism, unspecified; J98.01 Acute bronchospasm; Z99.81 Dependence on supplemental oxygen; Z88.6 Allergy status to analgesic agent; Z88.8 Allergy status to other drugs, medicaments and biological substances; Z79.890 Hormone replacement therapy; Z79.899 Other long term (current) drug therapy; Z87.891 Personal history of nicotine dependence
CPT/HCPCS: 36415; 71046 ×2; 71260 ×2; 87070; 87077; 87186; 87205; 94640 ×4; 96374; 99285; A9270; J2930; J7050; Q9967; 80048; 85027; 87040; J0456; J0696; J0713; J7512; J7612-GY; J7620-GY

== ENCOUNTER 2019-09-07 09:53 | Emergency (ER) | payer MEDICARE, MEDICAID ==
[2019-09-07 10:22] VITALS: BP 131/75; PULSE 115
[2019-09-07] MEDS ORDERED: Albuterol/Ipratropium 3.0-0.5 MG/3 ML Neb Soln NEB ONE (10:48)
--- NOTE | 2019-09-07 10:53 | EDM.PDOC ---
ED HPI GENERAL MEDICAL PROBLEM - General Chief Complaint: Respiratory Problem Time Seen by Provider: 09/07/19 10:39 Source of Information: Reports: Patient, Family, Old Records, RN Notes Reviewed History Limitations: Reports: No Limitations - History of Present Illness INITIAL COMMENTS - FREE TEXT/NARRATIVE: 74-year-old gentleman presents emergency department a complaint of shortness of breath, he has a known history of COPD as well as non-small cell lung cancer currently on chemotherapy. He was recently admitted to hospital for pneumonia sputum did grow out Pseudomonas. Completed a course of antibiotics of levofloxacin and he takes his last dose of prednisone today he is a week out from discharge. He states the biggest reason he came in today is he feels his nebulizer is not working as well as it once did last neb was used yesterday. His sputum production has decreased and clear it was initially yellow it is now clear and he is producing small amounts but he is more rattling and and wh eezing. No fevers - Related Data Allergies Allergy/AdvReac Type Severity Reaction Status Date / Time barium sulfate Allergy Intermediate Hives Verified 09/07/19 10:08 ibuprofen Allergy Itching Verified 09/07/19 10:08 Home Meds: Home Meds Furosemide [Lasix] 40 mg PO ASDIRECTED 04/26/17 [History] Levothyroxine Sodium [Synthroid] 175 mcg PO DAILY 04/26/17 [History] Ipratropium [Atrovent] 0.5 mg INH Q6H PRN #30 neb 06/03/17 [Rx] Albuterol Sulfate [Proair Hfa] 2 puff INH QID PRN 06/19/18 [History] Fluticasone Propion/Salmeterol [Advair 250-50 Diskus] 1 puff INH BID 06/19/18 [History] guaiFENesin [Guaifenesin ER] 1,200 mg PO BID 06/19/18 [History] Albuterol/Ipratropium [DuoNeb 3.0-0.5 MG/3 ML] 1 inh INH Q4H PRN 07/03/18 [History] Clobetasol [Temovate 0.05% Oint] 15 gm TOP BID 07/03/18 [History] Codeine/guaiFENesin [Robitussin AC] 10 ml PO Q4H PRN #236 ml 08/31/19 [Rx] predniSONE [Prednisone] 10 mg PO ASDIRECTED #12 tablet 08/31/19 [Rx] predniSONE [Prednisone] 10 mg PO DAILY #10 tablet 09/07/19 [Rx] Past Medical History HEENT History: Reports: Cataract, Hard of Hearing, Impaired Vision, Other (See Below) Other HEENT History: dentures. bilateral hearing aids Respiratory History: Reports: COPD Gastrointestinal History: Reports: Hemorrhoids Musculoskeletal History: Reports: Back Pain, Chronic Endocrine/Metabolic History: Reports: Hypothyroidism Oncologic (Cancer) History: Reports: Brain, Liver, Lung, Lymphoma Dermatologic History: Reports: Other (See Below) Other Dermatologic History: rash - Infectious Disease History Infectious Disease History: Reports: Chicken Pox, Measles, Mumps - Past Surgical History Head Surgeries/Procedures: Reports: None HEENT Surgical History: Reports: Cataract Surgery, Tonsillectomy Respiratory Surgical History: Reports: Lung Biopsies GI Surgical History: Reports: Other (See Below) Other GI Surgeries/Procedures: hemorrhoidectomy Male Surgical History: Reports: Vasectomy Endocrine Surgical History: Reports: None Musculoskeletal Surgical History: Reports: None Oncologic Surgical History: Reports: None Dermatological Surgical History: Reports: None Social & Family History - Family History Family Medical History: Noncontributory - Tobacco Use Smoking Status *Q: Current Every Day Smoker Years of Tobacco use: 60 Packs/Tins Daily: 0.5 Used Tobacco, but Quit: No Second Hand Smoke Exposure: No - Caffeine Use Caffeine Use: Reports: Coffee - Recreational Drug Use Recreational Drug Use: No ED ROS GENERAL - Review of Systems Review Of Systems: See Below Constitutional: Denies: Fever, Chills HEENT: Reports: No Symptoms Respiratory: Reports: Shortness of Breath, Wheezing, Sputum Cardiovascular: Reports: No Symptoms GI/Abdominal: Reports: No Symptoms ED EXAM, GENERAL - Physical Exam Exam: See Below Exam Limited By: No Limitations General Appearance: Alert, WD/WN, No Apparent Distress Respiratory/Chest: No Respiratory Distress, Decreased Breath Sounds, Rales, Rhonchi, Wheezing Cardiovascular: No Murmur, Tachycardia GI/Abdominal: Soft, Non-Tender Course - Vital Signs Last Recorded V/S: Last Vital Signs Temp 95.9 F L 09/07/19 10:50 Pulse 115 H 09/07/19 10:50 Resp 22 H 09/07/19 10:50 BP 131/75 06/27/20 10:50 Pulse Ox 95 09/07/19 10:50 - Orders/Labs/Meds Orders: Active Orders 24 hr Category Date Time Status RT Aerosol Therapy [RC] ASDIRECTED Care 09/07/19 10:48 Active CORONAVIRUS COVID-19, [facility] 09/07/19 11:17 Ordered Meds: Medications Discontinued Medications Generic Name Dose Route Start Last Admin Trade Name Freq PRN Reason Stop Dose Admin Albuterol/Ipratropium 3 ml 09/07/19 10:48 09/07/19 10:54 Duoneb 3.0-0.5 Mg/3 Ml NEB 09/07/19 10:49 3 ml ONETIME ONE Administration Departure - Departure Time of Disposition: 11:19 Disposition: Home, Self-Care 01 Condition: Fair Clinical Impression: COPD (chronic obstructive pulmonary disease) Qualifiers: COPD type: chronic bronchitis Chronic bronchitis type: unspecified Qualified Code(s): J42 - Unspecified chronic bronchitis - Discharge Information Prescriptions: predniSONE [Prednisone] 10 mg PO DAILY #10 tablet Instructions: Chronic Obstructive Pulmonary Disease Exacerbation, [id number] Referrals: Darrick Berrios NP [Primary Care Provider] - Forms: ED Department Discharge Additional Instructions: Continue with your current medications, start prednisone 10 mg once a day tomorrow for the next 10 days, we will contact you when your COVID test becomes available current running times about 5 days, keep your follow-up appointment with your primary care provider call return to the emergency department worsening of symptoms. Sepsis Event Note (ED) - Focused Exam Vital Signs: Vital Signs Temp Pulse Resp BP Pulse Ox 09/07/19 10:50 95.9 F L 115 H 22 H 131/75 95 09/07/19 10:20 95.9 F L 115 H 22 H 131/75 95 - My Orders Last 24 Hours: My Active Orders 09/07/19 10:48 RT Aerosol Therapy [RC] ASDIRECTED 09/07/19 11:17 CORONAVIRUS COVID-19, [facility] Urgent - Assessment/Plan Last 24 Hours: My Active Orders 09/07/19 10:48 RT Aerosol Therapy [RC] ASDIRECTED 09/07/19 11:17 CORONAVIRUS COVID-19, [facility] Urgent Plan: Assessment Acuity = acute Site and laterality = COPD exacerbation complicated with recent pneumonia and history of non-small cell lung cancer Etiology = multifactorial Manifestations = wheezing rhonchi Location of injury = Home Lab values = none Plan He had good improvement with DuoNeb, plan is to continue his prednisone he is currently at 20 mg today we will drop him down to 10 mg daily for the next 10 days then stop, he will continue with his DuoNeb at home he will also wear his oxygen continuously as this does help dry up his sputum production. He is requesting a COVID 19 test. This note was dictated using [employer] voice recognition software please call with any questions on syntax or grammar.
== END 2019-09-07 11:33 | disposition home or self-care (01) ==
LOC: JP.ED 09:53
DX: J44.9 Chronic obstructive pulmonary disease, unspecified (principal); E03.9 Hypothyroidism, unspecified; F17.210 Nicotine dependence, cigarettes, uncomplicated; Z88.6 Allergy status to analgesic agent; Z91.09 Other allergy status, other than to drugs and biological substances; Z79.899 Other long term (current) drug therapy; Z20.828 Contact with and (suspected) exposure to other viral communicable diseases
CPT/HCPCS: 94640; 99282; 99285; U0002; J7620-GY